=== PATIENT | male | born 1965 | race Caucasian/White ===

== ENCOUNTER 2017-04-11 08:55 | Emergency (ER) | payer SELFPAY ==
[~2017-04-11] VITALS: Ht 190.5 cm; Wt 95.0 kg
[~2017-04-11 08:55] MED LIST: FLEXERIL5 MG PO; MELOXICAM7.5 MG PO; PERCOCET 5/325M1 TAB PO
[2017-04-11] MEDS ORDERED: OXYCODONE HCL5 MG PO (09:10)
[2017-04-11 10:14] LABS: HEMATOCRIT 39.5 % (39.0-50.0); IMMATURE GRANULOCYTES 0.9 % (0.0-1.0); MEAN CELL VOLUME 94.7 fL CALC (80.0-100.0); MEAN CORPUSCULAR HGB 31.2 pG CALC (26.0-32.0); MEAN CORPUSCULAR HGB CONC 32.9 g/L CALC (32.0-36.0); NEUT# 6.39 thou/uL (1.82-7.42); RED BLOOD COUNT 4.17 mill/uL (4.70-6.10); RED CELL DISTRI WIDTH 13.9 % (11.5-15.5)
[2017-04-11 10:22] LABS: ALBUMIN 4.6 g/dL (3.2-5.0); ALKALINE PHOSPHATASE 64 u/l (38-126); ANION GAP 17 (6-22 (CALC)); BILIRUBIN, TOTAL 0.6 mg/dL (0.0-1.4); BUN 13 mg/dL (9-20); BUN/CREATININE RATIO 16 (12-20 (CALC)); CALCIUM 9.7 mg/dL (8.4-10.2); CARBON DIOXIDE 29 mmol/l (22-30); CHLORIDE 100 mmol/l (95-108); CREATININE 0.8 mg/dL (0.7-1.3); GFR > 60 ML/MIN (>=60 (CALC)); GFR FOR AFR.AMER. > 60 ML/MIN (>=60 (CALC)); GLUCOSE 120 mg/dL (75-110); POTASSIUM 4.8 mmol/l (3.5-5.1); SGOT/AST 30 u/l (17-59); SGPT/ALT 35 u/l (21-72); SODIUM 140 mmol/l (137-146)
[2017-04-11] MEDS ORDERED: BACTRIM DS1 TAB PO (11:15)
[2017-04-11] MEDS ORDERED: MEDDOSEPAK PO (11:15)
[2017-04-11 11:23] VITALS: BP 139/82
== END 2017-04-11 11:25 | disposition home or self-care (01) | DRG 607 ==
LOC: ED 08:55
PROVIDERS: Emergency Medicine
DX: R21 Rash and other nonspecific skin eruption (principal); R22.42 Localized swelling, mass and lump, left lower limb

== ENCOUNTER 2017-04-18 19:39 | Observation (INO) | payer SELFPAY ==
[~2017-04-18] VITALS: Ht 190.5 cm; Wt 94.0 kg
[~2017-04-18 19:39] MED LIST changes: +BACTRIM DS1 TAB PO; +MEDDOSEPAK PO; +OXYCODONE HCL5 MG PO
--- NOTE | 2017-04-18 20:04 | NUR ---
PT TO ROOM FOR TREATMENT IN STABLE CONDITION
--- NOTE | 2017-04-18 22:00 | NUR ---
IV ESTABLISHED, LABS DRAWN AND SENT. PATIENT MEDICATED ORDERED. WILL MONITOR FOR EFFECT.
[2017-04-18 22:19] LABS: HEMATOCRIT 38.1 % (39.0-50.0); HEMOGLOBIN 12.6 g/dl (14.0-18.0); IMMATURE GRANULOCYTES 1.3 % (0.0-1.0); MEAN CELL VOLUME 93.6 fL CALC (80.0-100.0); MEAN CORPUSCULAR HGB CONC 33.1 g/L CALC (32.0-36.0); NEUT# 10.46 thou/uL (1.82-7.42); RED BLOOD COUNT 4.07 mill/uL (4.70-6.10); RED CELL DISTRI WIDTH 13.2 % (11.5-15.5)
[2017-04-18 22:31] LABS: ALBUMIN 4.9 g/dL (3.2-5.0); ALKALINE PHOSPHATASE 80 u/l (38-126); ANION GAP 18 (6-22 (CALC)); BILIRUBIN, TOTAL 0.7 mg/dL (0.0-1.4); BUN 15 mg/dL (9-20); BUN/CREATININE RATIO 16 (12-20 (CALC)); CALCIUM 9.6 mg/dL (8.4-10.2); CARBON DIOXIDE 28 mmol/l (22-30); CHLORIDE 100 mmol/l (95-108); GFR > 60 ML/MIN (>=60 (CALC)); GFR FOR AFR.AMER. > 60 ML/MIN (>=60 (CALC)); GLUCOSE 97 mg/dL (75-110); POTASSIUM 4.3 mmol/l (3.5-5.1); SGOT/AST 24 u/l (17-59); SGPT/ALT 36 u/l (21-72); SODIUM 143 mmol/l (137-146); TOTAL PROTEIN 8.4 g/dL (6.3-8.2)
--- NOTE | 2017-04-18 22:35 | NUR ---
ABX COMPLETED. PATIENT STATES NO CHANGE IN PAIN AFTER MEDS. AWAITING MD AND PLAN OF CARE.
--- NOTE | 2017-04-18 23:39 | NUR ---
PATIENT RESTING ON STRETCHER. ALL DIAGNOSTICS COMPLETED. CONTINUE AWAITING MD FOR PLAN OF CARE.
--- NOTE | 2017-04-19 00:23 | NUR ---
CONTINUE AWAITING MD FOR PLAN OF CARE.
--- NOTE | 2017-04-19 00:33 | NUR ---
PATIENT GIVEN URINAL IN ATTEMPT TO COLLECT URINE SAMPLE.
[2017-04-19 00:58] LABS: URINE BILIRUBIN - DIPSTICK NEGATIVE (NEGATIVE); URINE BLOOD DIPSTICK NEGATIVE (NEGATIVE); URINE CLARITY CLEAR; URINE COLOR YELLOW; URINE GLUCOSE - DIPSTICK NEGATIVE (NEGATIVE); URINE KETONE NEGATIVE (NEGATIVE); URINE LEUK ESTERASE NEGATIVE (NEGATIVE); URINE NITRITE - DIPSTICK NEGATIVE (Negative); URINE PH 7.5 (4.5-8.0); URINE PROTEIN - DIPSTICK NEGATIVE (NEG-TRACE); URINE SPECIFIC GRAVITY 1.015
--- NOTE | 2017-04-19 01:19 | NUR ---
REPORT CALLED TO DARÍO. PATIENT ROOM IS NOT CLEAN. WILL NOTIFY WHEN READY.
--- NOTE | 2017-04-19 01:55 | NUR ---
PATIENT TO FLOOR VIA WHEELCHAIR.
[2017-04-19 02:00] VITALS: BP 131/84
--- NOTE | 2017-04-19 02:00 | NUR ---
PT. ARRIVED TO THE FLOOR VIA STRETCHER ACCOMPANIED BY ER NURSE. PT. ORIENTED TO CALL LIGHT, ROOM, AND POC; VERBALIZES UNDERSTANDING. ADMISSION ASSESSMENT COMPLETED. PT. HAS REDNESS/SWELLING NOTED TO LEFT FOOT EXTENDING UP 3/4TH OF A WAY UP [place]; OPEN AREA NOTED WITH SMALL AMOUNT OF PUSS AND SEROUS SANGINOUS DRAINAGE NOTED; SWABBED FOR WOUND CULTURE AND PLACED DRY DRESSING. PT. C/O LLE PAIN 03/15, WILL CALL MD FOR FURTHER ORDERS, NO PAIN MEDICATION PROFILED. PO FLUIDS OFFERED. PT. INSTRUCTED TO CALL FOR ANY NEEDS. CALL LIGHT IS IN REACH. WILL CONTINUE TO MONITOR.
--- NOTE | 2017-04-19 02:26 | NUR ---
SPOKED WITH DR. DUPONT AND NOTIFIED HIM OF PTS WOUND TO LLE AND OF PT'S C/O LLE PAIN. NEW ORDERS RECEIVED AND TO BE CARRIED OUT.
--- NOTE | 2017-04-19 05:35 | NUR ---
PT. RESTING IN BED WITH NO DISTRESS NOTED. AWAKENED FOR SCHEDULED ZOSYN, HUNG AT THIS TIME. PT. DENIES NEEDS, VOICES NO COMPLAINTS. CALL LIGHT IS IN REACH. WILL CONTINUE TO MONITOR.
[2017-04-19 07:50] VITALS: BP 114/71
--- NOTE | 2017-04-19 07:50 | NUR ---
PT. SITTING UP IN BED WATCHING TV, REPORTS PAIN 03/15 - MEDICATED ORDERS PROVIDE W/DILAUDID; DENIES ANY OTHER NEEDS AT THIS TIME, V/S ASSESSED AND CALL LIGHT W/IN REACH
[2017-04-19] MEDS ORDERED: KEFLEX500 M1 PO (09:04)
--- NOTE | 2017-04-19 12:50 | NUR ---
PT.OFF THE FLOOR DISCHARGED, AMBULATED SELF IN GOOD CONDITION
== END 2017-04-19 12:28 | disposition home or self-care (01) | DRG 603 ==
LOC: ED 19:39 → ED-I 04-19 00:20 → ED 04-19 00:51 → MS2 04-19 00:52
PROVIDERS: Emergency Medicine; ADMIT Internal Medicine; ATTEND Internal Medicine
DX: L02.416 Cutaneous abscess of left lower limb (principal); F17.220 Nicotine dependence, chewing tobacco, uncomplicated; L03.116 Cellulitis of left lower limb; M19.90 Unspecified osteoarthritis, unspecified site; L30.9 Dermatitis, unspecified; Z72.89 Other problems related to lifestyle; Z85.828 Personal history of other malignant neoplasm of skin
CPT/HCPCS: G0378

== ENCOUNTER 2019-10-15 19:40 | Inpatient (IN) | payer SELFPAY ==
[~2019-10-15] VITALS: Ht 190.5 cm; Wt 71.8 kg
[~2019-10-15 19:40] MED LIST changes: +KEFLEX500 M1 PO
--- NOTE | 2019-10-15 20:11 | NUR ---
PLACED IN WAITING ROOM PENDING AVAILABLE ROOM
--- NOTE | 2019-10-15 21:12 | NUR ---
RESTING QUIETLY IN WC IN WAITING ROOM. EXPLAINED DELAY.
--- NOTE | 2019-10-15 23:27 | NUR ---
PT. TO ROOM 12 WITH C/O BLE EDEMA AND OPEN SORES TOBLE. RLE HAS EXTENSIVE OPEN AREAS, WITH REDDENED PAINFUL AREAS. PT. STATES HE LIVES IN THE [facility] AND HE DOES NOT KNOW HOW THIS HAPPENED TO HIS LEGS.
--- NOTE | 2019-10-15 23:30 | NUR ---
TOES TO BLE ARE PINK WM AND MOVEABLE. FAINT PEDAL PLUSE TO BILATERAL FEET.
[2019-10-15 23:58] LABS: IMMATURE GRANULOCYTES 1.6 % (0.0-5.0); MEAN CORPUSCULAR HGB 28.4 pG CALC (26.0-32.0); MEAN CORPUSCULAR HGB CONC 31.2 g/L CALC (32.0-36.0); NEUT# 10.23 thou/uL (1.82-7.42); RED BLOOD COUNT 3.1 mill/uL (4.70-6.10); RED CELL DISTRI WIDTH 15.3 % (11.5-15.5)
--- NOTE | 2019-10-15 23:58 | NUR ---
IV ABT. STARTED PER MD ORDER.
[2019-10-16 00:03] LABS: HEMATOCRIT 28.2 % (39.0-50.0); HEMOGLOBIN 8.8 g/dl (14.0-18.0)
[2019-10-16 00:05] LABS: BARBITURATES NEGATIVE (NEGATIVE); COCAINE NEGATIVE (NEGATIVE); METHADONE NEGATIVE (NEGATIVE); OXCYCODONE NEGATIVE (NEGATIVE); TETRAHYDROCANNABIONOL NEGATIVE (NEGATIVE); TRICYLIC ANTIDEPRESSANTS NEGATIVE (NEGATIVE); URINE BILIRUBIN - DIPSTICK NEGATIVE (NEGATIVE); URINE BLOOD DIPSTICK NEGATIVE (NEGATIVE); URINE COLOR YELLOW; URINE GLUCOSE - DIPSTICK NEGATIVE (NEGATIVE); URINE KETONE NEGATIVE (NEGATIVE); URINE LEUK ESTERASE NEGATIVE (NEGATIVE); URINE NITRITE - DIPSTICK NEGATIVE (Negative); URINE PROTEIN - DIPSTICK TRACE mg/dL (NEG-TRACE); URINE SPECIFIC GRAVITY 1.015
[2019-10-16 00:16] LABS: ALBUMIN 3.7 g/dL (3.2-5.0); ALKALINE PHOSPHATASE 92 u/l (38-126); ANION GAP 15 (6-22 (CALC)); BILIRUBIN, TOTAL 0.4 mg/dL (0.0-1.4); BUN 15 mg/dL (9-20); BUN/CREATININE RATIO 15 (12-20 (CALC)); CARBON DIOXIDE 30 mmol/l (22-30); CHLORIDE 98 mmol/l (95-108); ETHYL ALCOHOL 0 mg/dl (0-30); GFR > 60 ML/MIN (>=60 (CALC)); GFR FOR AFR.AMER. > 60 ML/MIN (>=60 (CALC)); MAGNESIUM 2.2 mg/dL (1.6-2.3); POTASSIUM 4.3 mmol/l (3.5-5.1); SGOT/AST 33 u/l (17-59); SODIUM 139 mmol/l (137-146); TOTAL PROTEIN 8.2 g/dL (6.3-8.2)
--- NOTE | 2019-10-16 00:50 | NUR ---
PT. C/O BLE ITCHING, MD AWARE, BENADRYL IVP GIVEN PER MD ORDER.
--- NOTE | 2019-10-16 01:15 | NUR ---
Admission Note Report Given to: SAIDA SOLIS Transported by: Wheelchair X Stretcher Transported with: X Nurse Transporter X Patent IV O2 Banking Teacher Location: ICU X MS2
--- NOTE | 2019-10-16 01:26 | NUR ---
DRY STERIL DRESSINGS APPLIED TO BLE. PER MD ORDER.
--- NOTE | 2019-10-16 01:35 | NUR ---
PT. TAKEN TO MS FLOOR VIA STRETCHER, NO C/O AT THIS TIME.
[2019-10-16 01:40] VITALS: BP 153/88
--- NOTE | 2019-10-16 01:40 | NUR ---
PT ARRIVED TO FLOOR VIA STRETCHER ACCOMPAINED BY ER STAFF. PT ALERT AND ORIENTED. PT EXCESSIVELY PICKING AT SCABS AND SCRATCHING SELF. PT HAS HARD TIME KEEPING EYE CONTACT. NO APPARENT DISTRESS NOTED. PT C/O DISCOMFORT TO SKIN STATES "THE CRACKING OF MY SKIN HURTS". BLE EDEMA NOTED +[address] APPLIED IN ED, CDI. WOUND IMAGES OBTAINED AND DOCUMENTED. FOUL ODOR NOTED COMING FROM WOUNDS. LOTION APPLIED TO SKIN ABOVE DRESSINGS TO RELIEVE ITCHING AND CRACKING OF SKIN. IV SITE APPEARS HEALTHY, IV ABT INFUSING WITHOUT DIFFICULTY. PT ORIENTED TO ROOM AND CALL LIGHT SYSTEM. DISCUSSED POC. PT VERBALIZED UNDERSTANDING. WILL CONTINUE TO MONITOR.
--- NOTE | 2019-10-16 02:45 | NUR ---
PT MEDICATED FOR PAIN WITH PRN MOTRIN AND BLE ELEVATED ON PILLOW. MEAL PROVIDED WELL UPON REQUEST. PT REMAINS RESTLESS AND PICKING SCABS ON ARMS AND NECK. EDUCATION REINFORCED AT THIS TIME. CALL LIGHT WITHIN REACH WILL CONTINUE TO MONITOR.
[2019-10-16 04:00] VITALS: BP 139/68
[2019-10-16 09:18] VITALS: BP 126/69
--- NOTE | 2019-10-16 09:20 | NUR ---
PT RESTING IN SEMI FOWLERS POSITION,A&O X3;VS OBTAINED AND ASSESSMENT COMPLETED;PT DENIES ANY CURRENT PAIN OR DISCOMFORTS,PAIN SCALE AND REPORTING EDUCATED;RESPIRATIONS EVEN AND UNLABORED ON RA,CLEAR LUNG SOUNDS;ABDOMEN SOFT ON PALPATION AND ACTIVE IN ALL 4 QUADRANTS;WEAK PEDAL PULSES;DRESSINGS TO BLE CDI AND LEGS ELEVATED ON A PILLOW;#20G TO LAC FLUSHED AND PATENT,SITE APPEARS HEALTHY;PT DENIES ANY CURRENT PAIN OR NEEDS;ENCOURAGED TO CALL FOR ASSISTANCE IF NEEDED;CALL LIGHT IN REACH;WILL CONTINUE TO MONITOR
--- NOTE | 2019-10-16 12:07 | NUR ---
NOTIFIED 'S OFFICE OF CONSULT,SPOKE WITH AYLEEN.
--- NOTE | 2019-10-16 12:35 | NUR ---
PT RESTING IN SEMI FOWLERS POSITION WITH VISITORS AT BEDSIDE;RESPIRATIONS REMAIN EVEN AND UNLABORED ON RA;PT REPORTS BLE PAIN RATING 8/10 ON THE PAIN SCALE AND REQUESTS PAIN MEDICATION,PT TO BE MEDICATED WITH PRN DILAUDID 1MG IVP;BLE DRESSED WITH KERLEX AND TELFA DRESSINGS WITH ENCOURAGED ELEVATION;IV SITE PATENT AND NS STARTED @ 100ML/HR;PT DENIES ANY ADDITIONAL NEEDS AND IS ENCOURAGED TO CALL FOR ASSISTANCE IF NEEDED;FALL PRECAUTIONS IN PLACE WITH CALL LIGHT IN REACH;WILL CONTINUE TO MONITOR
--- NOTE | 2019-10-16 13:25 | NUR ---
NOTIFIED OR ABOUT POSSIBLE I&D TOMORROW OF BLE,SPOKE WITH IRVING IN OR
[2019-10-16 14:20] VITALS: BP 131/70
--- NOTE | 2019-10-16 15:18 | NUR ---
PT RETURNED TO MED/SURG ROOM 270 IN STABLE CONDITION
--- NOTE | 2019-10-16 16:15 | NUR ---
RT AT BEDSIDE OBTAINING EKG
--- NOTE | 2019-10-16 16:15 | NUR ---
PT RESTING IN SEMI FOWLERS POSITION;RESPIRATIONS EVEN AND UNLABORED ON RA;PT DENIES ANY CURRENT PAIN OR DISCOMFORTS;IV SITE PATENT;BLE DRESSINGS CDI;IV FLUIDS INFUSING WITH EASE PER ORDER;PT DENIES ANY ADDITIONAL NEEDS AT THIS TIME AND IS ENCOURAGED TO CALL FOR ASSISTANCE IF NEEDED;CALL LIGHT IN REACH;WILL CONTINUE TO MONITOR
--- NOTE | 2019-10-16 16:19 | NUR ---
XRAY AT BEDSIDE OBTAINING CHEST XRAY
--- NOTE | 2019-10-16 16:58 | NUR ---
S: MARCELO BARFIELD is a 53 M who presents with cellulitis and abscess of left lower extremity and cellulitis and abscess of right leg. He has a history of osteoarthritis, recurrent cellulitus and herniated disc L4-L5. All medications in patient's chart were reviewed. O: VS: BP:131/70 mmHg, P: 95bpm, RR: 20 breaths/min,T: 99.6 W: 73kg, HT: 75inch, Scr=1.0 mg/dL,CrCl= 89.22 ml/min A: Blood culture is pending. P: Patient is on Zosyn 3.375 GM IV Q6H. Vancomycin ordered for pharmacy to dose. Dose of Vancomycin 1,000mg was given at the ED 10/15/19 @2330 and 10/16/19 @1330 Start Vancomycin 1,000mg IV Q12H. Vancomycin trough to be drawn before the 4th dose on 10-17-19 @ 1230. Vancomycin goal trough is between 10-15 mcg/ml. Pharmacy will follow and or advise on antibiotics use as needed.
--- NOTE | 2019-10-16 17:52 | NUR ---
PT MEDICATED WITH PRN DILAUDID 1MG IVP FOR BLE PAIN;INFORMED CONSENT OBTAINED AT THIS TIME FOR DEBRIDEMENT OF BILATERAL LOWER EXTREMITIES.ALL RISKS AND BENEFITS DISCUSSED WITH PT WHO VERBALIZED UNDERSTANDING.
--- NOTE | 2019-10-16 19:05 | NUR ---
REPORT FROM ADDY SOLIS. PT NOTED RESTING IN BED WATCHING TV. NO APPARENT DISTRESS NOTED. DRESSING BLE CDI. PT DENIES ANY PAIN OR DISCOMFORT. DISCUSSED POC. PT VERBALIZED UNDERSTANDING. CALL LIGHT WITHIN REACH. WILL CONTINUE TO MONITOR.
[2019-10-16 19:15] VITALS: BP 122/67
--- NOTE | 2019-10-16 21:50 | NUR ---
PT MEDICATED FOR BLE PAIN 7-10. BLE REPOSITIONED AND ELEVATED ON PILLOWS FOR COMFORT. IV FLUIDS INFUSING WITHOUT DIFFICULTY. CALL LIGHT WITHIN REACH. WILL CONTINUE TO MONITOR.
[2019-10-17] VITALS (10 sets, daily range): BP systolic 124–144; BP diastolic 70–89
--- NOTE | 2019-10-17 01:19 | NUR ---
PT RESTING IN BED WITH EYES CLOSED. NO APPARENT DISTRESS NOTED. CALL LIGHT WITHIN REACH. WILL CONTINUE TO MONITOR.
[2019-10-17 05:21] LABS: HEMATOCRIT 27.4 % (39.0-50.0); HEMOGLOBIN 8.5 g/dl (14.0-18.0); MEAN CORPUSCULAR HGB 28.2 pG CALC (26.0-32.0); RED BLOOD COUNT 3.01 mill/uL (4.70-6.10); RED CELL DISTRI WIDTH 15.4 % (11.5-15.5)
--- NOTE | 2019-10-17 05:35 | NUR ---
PT RESTING IN BED WITH EYES CLOSED. NO APPARENT DISTRESS NOTED. CALL LIGHT WITHIN REACH. WILL CONTINUE TO MONITOR.
[2019-10-17 05:42] LABS: ANION GAP 11 (6-22 (CALC)); BUN 10 mg/dL (9-20); BUN/CREATININE RATIO 12 (12-20 (CALC)); CARBON DIOXIDE 29 mmol/l (22-30); CHLORIDE 100 mmol/l (95-108); CREATININE 0.8 mg/dL (0.7-1.3); GFR > 60 ML/MIN (>=60 (CALC)); GFR FOR AFR.AMER. > 60 ML/MIN (>=60 (CALC)); MAGNESIUM 2.1 mg/dL (1.6-2.3); POTASSIUM 4.4 mmol/l (3.5-5.1); SODIUM 136 mmol/l (137-146)
--- NOTE | 2019-10-17 07:30 | NUR ---
REPORT RECEIVED FROM IRMA COLLADO. PT SITTING UPRIGHT IN BED. SLEEPING. CALL LIGHT WITHIN REACH.
--- NOTE | 2019-10-17 12:05 | NUR ---
PT. LEFT FLOOR VIA STRETCHER ACCOMPANIED BY JEFF LEE DESTINATION OR.
--- NOTE | 2019-10-17 14:45 | NUR ---
PT ARRIVED TO FLOOR VIA STRETCHER ACCOMPANIED BY JEFF WOODS. PT TRANSFERED TO BED. DENIES PAIN AT THIS TIME. DRSG CDI TO BILATERAL LOWER LEGS. BOTH LEGS ELEVATED ON PILLOWS X 2. POST-OP VS PER PROTOCOL SET. PT. ALERT AND ORIENTED. FAMILY AT BEDSIDE NOW.
--- NOTE | 2019-10-17 16:27 | NUR ---
FAMILY AT BEDSIDE. PT DENIES NAUSEA OR PAIN. CALL LIGHT WITHIN REACH.
--- NOTE | 2019-10-17 16:34 | NUR ---
S: MARCELO BARFIELD is a 53 M who presents with cellulitis. He has a history of tobacco abuse, methamphetamine abuse, and cellulitis/abscess of right leg. All medications in patient's chart were reviewed. O: VS: BP 141/77 mmHg, P 75 bpm, RR 15 breaths/min, T 99 F W 71.838 kg, HT 75 in, Scr 0.8 mg/dl A: Blood culture is pending/show. P: Patient is on Zosyn 3.375g IV q6h. Vancomycin ordered for pharmacy to dose. Change dose to Vancomycin 1250mg IV Q12H. Vancomycin trough is drawn before the 4th dose on 10/19/2019 @ 1230. Vancomycin goal trough is between 10-15 mcg/ml. Pharmacy will follow and or advise on antibiotics use as needed.
--- NOTE | 2019-10-17 19:02 | NUR ---
REPORT FROM SATINDER AGUILAR. PT NOTED SITTING UP IN BED WITH VISITOR AT BEDSIDE. PT EATING FOOD BROUGHT FROM OUTSIDE OF FACILITY. PT DENIES ANY PAIN OR DISCOMFORT. NO CURRENT WANTS OR NEEDS. DISCUSSED POC. PT VERBALIZED UNDERSTANDING. CALL LIGHT WITHIN REACH. WILL CONTINUE TO MONITOR.
--- NOTE | 2019-10-17 21:44 | NUR ---
PT MEDICATED FOR BLE PAIN 8-10. LEGS ELEVATED ON PILLOWS AT THIS TIME. DRESSING CDI. PT DENIES ANY OTHER WANTS OR NEEDS. CALL LIGHT WITHIN REACH. WILL CONTINUE TO MONITOR.
[2019-10-18 00:05] VITALS: BP 151/76
--- NOTE | 2019-10-18 00:48 | NUR ---
PT MEDICATED FOR BLE PAIN 8-10 WITH PRN DILAUDID. LEGS REPOSITIONED AND ELEVATED ON PILLOWS. PT DENIES ANY OTHER WANTS OR NEEDS. CALL LIGHT WITHIN REACH. WILL CONTINUE TO MONITOR.
[2019-10-18 04:20] VITALS: BP 157/76
--- NOTE | 2019-10-18 04:37 | NUR ---
PT MEDICATED FOR BLE PAIN 8-10. PT DENIES ANY OTHER WANTS OR NEEDS. NO APPARENT DISTRESS NOTED. CALL LIGHT WITHIN REACH. WILL CONTINUE TO MONITOR.
[2019-10-18 05:13] LABS: HEMATOCRIT 27.1 % (39.0-50.0); HEMOGLOBIN 8.3 g/dl (14.0-18.0); MEAN CELL VOLUME 92.2 fL CALC (80.0-100.0); MEAN CORPUSCULAR HGB 28.2 pG CALC (26.0-32.0); MEAN CORPUSCULAR HGB CONC 30.6 g/L CALC (32.0-36.0); RED BLOOD COUNT 2.94 mill/uL (4.70-6.10); RED CELL DISTRI WIDTH 15.1 % (11.5-15.5)
[2019-10-18 05:42] LABS: ANION GAP 10 (6-22 (CALC)); BUN 15 mg/dL (9-20); BUN/CREATININE RATIO 16 (12-20 (CALC)); CARBON DIOXIDE 31 mmol/l (22-30); CHLORIDE 100 mmol/l (95-108); CREATININE 0.9 mg/dL (0.7-1.3); GFR > 60 ML/MIN (>=60 (CALC)); GFR FOR AFR.AMER. > 60 ML/MIN (>=60 (CALC)); POTASSIUM 4.4 mmol/l (3.5-5.1); SODIUM 136 mmol/l (137-146)
[2019-10-18 07:17] VITALS: BP 142/88
--- NOTE | 2019-10-18 08:02 | NUR ---
0802-Pt lying in bed with eyes closed. No s/s of distress. Bed low and locked. Call light and phone within reach. Pt stable, will continue to monitor.
[2019-10-18 10:55] VITALS: BP 155/92
--- NOTE | 2019-10-18 14:45 | NUR ---
1445-Pt sitting up in bed. Pt looks alert and great. Pt states legs throb but we are controling his pain well. I have medicated him and will do his ordered wet to dry dressing change at 1530. Bed low and locked. Call light and phone within reach. Pt stable. Will continue to monitor.
--- NOTE | 2019-10-18 15:30 | NUR ---
1530-Pt provided pain medication, dressing change performed per note to nurse section. Wet to dry dressing change. Pt tolerated well. Pictures obtained. New dressing noted. Notes state that dressing change needs to be completed TID on RLE and BID on LLE. Bed low and locked. Call light and phone within reach. Pt stable. Will continue to monitor.
[2019-10-18 17:10] VITALS: BP 146/81
[2019-10-18 18:20] VITALS: BP 119/65
[2019-10-19 00:03] VITALS: BP 126/64
--- NOTE | 2019-10-19 00:15 | NUR ---
PATIENT RESTING IN BED-MEDICATED WITH TORADO ORDERED AND WITH ZOSYN IVPB ORDERED. PATIENT STATES THAT HIS PAIN IS 9/10 SHORTLY AFTER RECIEVING TORADOL AND MEDICATED WITH DILAUDID 1MG IVP FOR PAIN. EAGLE LE DRESSINGS INTACT AND BLE ELEVATED ON PILLOW. SAFETY PRECAUTIONS REINFORCED. CALL LIGHT IN REACH. WILL CONT TO MONITOR.
[2019-10-19 04:08] VITALS: BP 126/73
--- NOTE | 2019-10-19 04:45 | NUR ---
PATEINT RESTING IN BED WITH BOTH LE ELEVATED ON PILLOWS. PATIENT PRE-MEDICATED FOR WOUND CARE WITH DILAUDID 1MG IVP ORDERED. BOTH LOWER EXTREMITY DRESSINGS WERE CHANGED. VERY PAINFUL. OLD DRESSING REMOVED USE SALINE FOR IRRIGATION TO REMOVE OLD DRESSINGS. ADAPTIC APPLIED AND MOIST TO DRY SALINE DRESSINGS APPLIED, COVERED WITH ADB'S AND SECURED WITH GAUZE WRAP. PATIENT MEDICATED AFTER DRESSING CHANGE WITH LORTAB ORDERED. BOTH LE REMAIN ELEVATED ON PILLOWS. FEET ARE COOL TO TOUCH WITH FAINT PEDAL PULSES. PATIENT VOIDED 900CC OF CLEAR YELLOW URINE IN URINAL. SAFETY PRECAUTIONS REINFORCED. CALL LIGHT IN REACH. WILL CONT TO MONITOR.
[2019-10-19 07:24] VITALS: BP 131/74
--- NOTE | 2019-10-19 07:24 | NUR ---
PT SLEEPING IN BED. AWAKENED TO COMPLETE ASSESSMENT. A&O X3. NO DISTRESS NOTED. DRESSINGS TO BLE CDI, NO SHADOWING PRESENT. LEGS ELEVATED. NO OTHER NEEDS AT THIS TIME. ASSESSMENT COMPLETED. DISCUSSED POC. CALL LIGHT IN REACH. CONTINUE TO MONITOR.
--- NOTE | 2019-10-19 09:21 | NUR ---
PT C/O PAIN 04/15. DILAUDID GIVEN. WILL REASSESS.
--- NOTE | 2019-10-19 09:46 | NUR ---
PT SLEEPING IN BED, NO SIGNS OF PAIN AT THIS TIME. CONTINUE TO MONITOR.
--- NOTE | 2019-10-19 14:17 | NUR ---
PER PT AND MOTHER "LORTAB DOES NOT DO ANYTHING FOR ME, DILAUDID IS BETTER". PT REFUSED LORTAB. DILAUDID GIVEN.
--- NOTE | 2019-10-19 14:26 | NUR ---
VANCOMYCIN ORDERED FOR PHARMACY TO DOSE. PT RECEIVING VANCOMYCIN 1250MG IV Q12H. VANCO TROUGH = 11 ...CONTINUE AT THIS DOSE.
[2019-10-19 15:20] VITALS: BP 128/68
--- NOTE | 2019-10-19 15:30 | NUR ---
PT COMPLAINED TO CELESTINA LOOMIS THAT I DID NOT "GIVE HIM HIS LORTAB". EXPLAINED TO PT THAT I DID OFFER IT AND HE REFUSED IT THE FIRST TIME. PER PT HE WAS CONFUSED IN REGARDS TO THE MEDICATION AND THOUGHT THAT IT WAS GOING TO BE THE ONLY THING THAT I WAS GIVING HIM. EXPLAINED TO THE PT THAT THAT WAS NOT THE CASE. PT STATED "OH OKAY, WELL I WAS JUST CONFUSED BUT I GET IT NOW". LORTAB GIVEN AT THIS TIME.
[2019-10-19 18:37] VITALS: BP 141/76
--- NOTE | 2019-10-19 20:00 | NUR ---
PATIENT RESTING IN BED AT THIS TIME WITH HOB ELEVATED AND EYES CLOSED. APPEARS SLEEPING AT THIS TIME. DRESSING TO BOTH LE INTACT AND ELEVATED ON PILLOWS. IV SITE TO RIGHT FOREARM INTACT WITH IVF PATENT AND INFUSING AT KVO RATE. CALL LIGHT IN REACH. WILL CONT TO MONITOR.
--- NOTE | 2019-10-20 00:55 | NUR ---
APPEARS SLEEPING AT THIS TIME WITH EYES CLOSED. MEDICATED EARLIER FOR 9/10 ON PAIN SCALE TO BOTH LEGS. IVF PATENT AND INFUSING AT KVO RATE VIA RIGHT FOREARM SITE. BLE ELEVATED ON PILLOWS WITH DRESSING INTACT. CALL LIGHT IN REACH. WILL CONT TO MONITOR.
--- NOTE | 2019-10-20 02:18 | NUR ---
PATIENT RESTING IN BED-C/O SEVERE BLE PAIN-04/15 ON PAIN SALE. MEDICATED WITH DILAUDID 1MG IVP FOR PAIN. VANCO INFUSING ORDERED VIA RIGHT FA SITE. CALL LIGHT IN REACH. WILL CONT TO MONITOR.
[2019-10-20 03:23] VITALS: BP 126/70
--- NOTE | 2019-10-20 04:58 | NUR ---
PATIENT RESSTING IN [id number] WITH DILAUDID 1MG PRIOR TO WOUND CARE TO BLE. MULTIPLE WOUNDS CLEANSED WITH NS AND THEN MOIST TO DRY DRESSING APPLIED. SECURED WITH PAPER TAPE. PATIENT TO BE SEEN BY WOUND CARE TODAY. BOTH LEGS ELEVATED ON PILLOWS. DISCUSSED PROPER NUTRITION WITH PATIENT AND INCREASING HEALING ABILITY. IVF SITE TO RIGHT FOREARM INTACT WITH IVF NS AT KVO RATE. SAFETY PRECAUTIONS REINFORCED. CALL LIGHT IN REACH. WILL CONT TO MONITOR.
[2019-10-20 06:44] LABS: HEMATOCRIT 28.3 % (39.0-50.0); HEMOGLOBIN 8.5 g/dl (14.0-18.0); MEAN CORPUSCULAR HGB 28.2 pG CALC (26.0-32.0); RED BLOOD COUNT 3.01 mill/uL (4.70-6.10); RED CELL DISTRI WIDTH 15.5 % (11.5-15.5)
--- NOTE | 2019-10-20 07:10 | NUR ---
REPORT RECEIVED FROM JEFF CARRASQUILLO. PT SITTING UP IN BED BRUSHING TEETH; ALERT AND ORIENTED. C/O 9/10 RLE PAIN. DRESSINGS CDI TO BLE. RESPIRATIONS EVEN AND UNLABORED ON ROOM AIR. PLAN OF CARE REVIEWED. PT ENCOURAGED TO VERBALIZE CONCERNS. STATES UNDERSTANDING. SAFETY MEASURES IN PLACE. CALL LIGHT WITHIN REACH.
[2019-10-20 07:11] LABS: ANION GAP 8 (6-22 (CALC)); BUN 20 mg/dL (9-20); BUN/CREATININE RATIO 25 (12-20 (CALC)); CARBON DIOXIDE 31 mmol/l (22-30); CHLORIDE 103 mmol/l (95-108); CREATININE 0.8 mg/dL (0.7-1.3); GFR > 60 ML/MIN (>=60 (CALC)); GFR FOR AFR.AMER. > 60 ML/MIN (>=60 (CALC)); POTASSIUM 4.3 mmol/l (3.5-5.1); SODIUM 138 mmol/l (137-146)
[2019-10-20 08:00] VITALS: BP 126/79
--- NOTE | 2019-10-20 11:10 | NUR ---
DR. PICKENS AT BEDSIDE TO EVALUATE LEG WOUNDS. DILAUDID GIVEN AT THIS TIME FOR 9/10 PAIN. PARENTS AT BEDSIDE.
--- NOTE | 2019-10-20 13:43 | NUR ---
DR. FLORES AT BEDSIDE TO EVALUATE LEG WOUNDS. MEDICATED WITH DILAUDID FOR 10/10 PAIN. PT WITH MOANING AND FACIAL GRIMACING.
--- NOTE | 2019-10-20 14:15 | NUR ---
RIGHT LEG DRESSED WITH XEROFORM AND KERLEX BY DR. BLANCA. CHANGE EVERY OTHER DAY.
[2019-10-20 15:18] VITALS: BP 132/68
--- NOTE | 2019-10-20 18:24 | NUR ---
DR. COX AT VIRTUAL BEDSIDE FOR ID CONSULT. LORTAB GIVEN NOW.
[2019-10-20 18:51] VITALS: BP 134/81
--- NOTE | 2019-10-20 20:00 | NUR ---
PATIENT REST IN BED WITH EYES CLOSED. APPEARS SLEEPING AT THIS TIME-RESPS ARE EVEN AND UNLABORED. BLE DRESSING ARE CLEAN DRY AND INTACT AT THIS TIME. BLE ELEVATED ON PILLOWS. IVF PATENT ANDINFUSING VIA RIGHT AC SITE AT KVO RATE. CALL LIGHT IN REACH. WILL CONT TO MONITOR.
--- NOTE | 2019-10-20 22:30 | NUR ---
PATIENT RESTING IN BED-C/O SEVERE BLE PAIN. MEDICATED WITH LORTAB 10/325MG PO ORDERED. PATIENT ASKING ABOUT "SHOT". PATIENT INSTRUCTED TTHAT THE DILAUDID HAS BEEN DISCONTUED AND NOW ON LORTABS ONLY. VERBALIZES UNDERSTANDING. CALL LIGHT IN REACH. WILL CONT TO MONITOR.
--- NOTE | 2019-10-21 03:00 | NUR ---
PATIENT C/O BLE PAIN-10/10 ON PAIN SCALE. MEDICATED WITH LORTAB ORDERED. CALL LIGHT IN REACH. WILL CONT TO MONITOR.
[2019-10-21 03:30] VITALS: BP 123/75
--- NOTE | 2019-10-21 05:01 | NUR ---
PATIENT APPEARS SLEEPING AT THIS TIME WITH EYES CLOSED. RESPS ARE EVEN AND UNLABORED. CALL LIGHT IN REACH. WILL CONT TOO MONITOR.
[2019-10-21 05:24] LABS: HEMATOCRIT 30.2 % (39.0-50.0); HEMOGLOBIN 9.2 g/dl (14.0-18.0); MEAN CELL VOLUME 92.4 fL CALC (80.0-100.0); MEAN CORPUSCULAR HGB 28.1 pG CALC (26.0-32.0); MEAN CORPUSCULAR HGB CONC 30.5 g/L CALC (32.0-36.0); RED BLOOD COUNT 3.27 mill/uL (4.70-6.10); RED CELL DISTRI WIDTH 15.3 % (11.5-15.5)
[2019-10-21 05:49] LABS: ANION GAP 11 (6-22 (CALC)); BUN 18 mg/dL (9-20); BUN/CREATININE RATIO 22 (12-20 (CALC)); CARBON DIOXIDE 29 mmol/l (22-30); CHLORIDE 101 mmol/l (95-108); CREATININE 0.8 mg/dL (0.7-1.3); GFR > 60 ML/MIN (>=60 (CALC)); GFR FOR AFR.AMER. > 60 ML/MIN (>=60 (CALC)); MAGNESIUM 2.2 mg/dL (1.6-2.3); POTASSIUM 4.8 mmol/l (3.5-5.1); SODIUM 137 mmol/l (137-146)
--- NOTE | 2019-10-21 07:00 | NUR ---
SHIFT CHANGE REPORT, PT AWAKE ALERT AND ORIENTED RESTING IN BED, C/O SEVERE PAIN TO LOWER EXT, CONCERN ADDRESSED, RIGHT LEG WITH SATRUATED DRESSING IN PLACE, CALL GOTTI IN REACH.
[2019-10-21 07:47] VITALS: BP 138/73
--- NOTE | 2019-10-21 12:08 | NUR ---
DR FLORES HERE, CHANGED DRESSING TO RIGHT LEG, PT GIVEN ORDERED ANALGESIC FOR PROCEDUDRE.
[2019-10-21 15:22] VITALS: BP 140/82
--- NOTE | 2019-10-21 16:00 | NUR ---
RESTING IN BED, PAIN CONCERNS ADDRESSED, WILL CONTINUE TO MONITOR.
[2019-10-21 19:41] VITALS: BP 115/65
--- NOTE | 2019-10-21 22:07 | NUR ---
PATIENT RESTING IN BED AT THIS TIME WITH HOB ELEVATED AND EYES CLOSED BUT RESPONDS WHEN SPOKEN TO. ALERT AND ORIENTED C/O 9/10 ON PAIN SCALE TO BLE. MEDICATED WITH ORTAB 10/325MG PO ORDERED. BLE WITH DRESSINGS INTACT-WERE CHANGED BY DR. OWEN TODAY. ELEVATED BLE ON PILLOWS. IVF PATENT AND INFSUING VIA RAC SITE AT KVO RATE. SAFETY PRECAUTIONS REINFORCED. CALL LIGHT IN REACH. WILL CONT TO MONITOR.
--- NOTE | 2019-10-22 00:10 | NUR ---
PATIENT RESTING IN BED AT THIS TIME-AWAKE ALERT AND C/O PAIN TO BLE AT 9/10 ON PAIN SCALE. PATIENT MEDICATED WITH LORTAB 10/325MG PO ORDERED AND ZOSYN INFUSING VIA RIGHT AC SITE ORDERED. PATIENT HUNGRY AND PROVIDED WITH TURKEY DINNER. VOIDING QS [id number] YELLOW URINE. DRESSING TO BLE ARE CDI AT THIS TIME AND ELEVATED ON PILLOWS. SAFETY PRECAUTIONS REINFORCED. CALL LIGHT IN REACH. WILL CONT TO MONITOR.
--- NOTE | 2019-10-22 02:17 | NUR ---
APPEARS SLEEPINT WITH HOB ELEVATED AND EYES COSED. RESP ARE EVEN AND UNLABORED. BLE DRESSINGS CDI ANDELEVATED ON PILLOWS. CALL LIGHT IN REACH. WILL CONT TO MONITOR.
[2019-10-22 04:00] VITALS: BP 124/74
--- NOTE | 2019-10-22 04:12 | NUR ---
PATIENT RESTING IN BED AT THIS TIME-C/O SEVERE BLE PAIN-03/15. MEDICATED WITH LORTAB 10/325MG PO FOR PAIN. VOIDED 400CC OF YELLOW URINE IN URINAL. BLE DRESSINGS INTACT AND ELEVATED ON PILLOWS. CALL LIGHT IN REACH. WILL CONT TO MONITOR.
--- NOTE | 2019-10-22 07:43 | NUR ---
SHIFT CHANGE REPORT, PT SLEEPING AT THIS TIME, NO VISIBLE OF DISCOMFORT, LEGS ELEVATED ON PILLOWS, DRESSINGS TO LOWER EXT CDI, CALL GOTTI IN REACH AND BED IN LOWEST POSITION.
[2019-10-22 08:09] VITALS: BP 118/62
[2019-10-22] MEDS ORDERED: LORTAB 1010 MG PO (11:41)
[2019-10-22] MEDS ORDERED: OMNICEF300 MG PO (11:41)
--- NOTE | 2019-10-22 12:30 | NUR ---
HAVING MEAL AT THIS TIME, PAIN CONCERN ADDRESSED, NO NEW COMPLAIN.
== END 2019-10-22 13:49 | disposition home or self-care (01) | DRG 580 ==
LOC: ED 19:40 → ED-I 10-16 00:16 → ED 10-16 00:31 → MS2 10-16 00:32 → ED-I 10-16 00:32 → MS2 10-16 01:02
PROVIDERS: Family Medicine; Nurse Practitioner Family; ADMIT Internal Medicine; ATTEND Internal Medicine
PROC: 0KBS0ZZ Excision of Right Lower Leg Muscle, Open Approach (ICD-10-PCS; principal; 2019-10-17)
PROC: 0JDP3ZZ Extraction of Left Lower Leg Subcutaneous Tissue and Fascia, Percutaneous Approach (ICD-10-PCS; 2019-10-17)
DX: L03.115 Cellulitis of right lower limb (principal); L97.929 Non-pressure chronic ulcer of unspecified part of left lower leg with unspecified severity; L97.919 Non-pressure chronic ulcer of unspecified part of right lower leg with unspecified severity; L03.116 Cellulitis of left lower limb; L02.416 Cutaneous abscess of left lower limb; L02.415 Cutaneous abscess of right lower limb; F15.10 Other stimulant abuse, uncomplicated; L98.9 Disorder of the skin and subcutaneous tissue, unspecified; B96.89 Other specified bacterial agents as the cause of diseases classified elsewhere; D64.9 Anemia, unspecified; F17.200 Nicotine dependence, unspecified, uncomplicated; Z59.0 Homelessness
CPT/HCPCS: J0131; J1100; J1650; J3370; Q3014

== ENCOUNTER 2020-01-11 05:45 | Inpatient (IN) | payer SELFPAY ==
[~2020-01-11] VITALS: Ht 190.5 cm; Wt 78.0 kg
[~2020-01-11 05:45] MED LIST changes: +LORTAB 1010 MG PO; +OMNICEF300 MG PO
--- NOTE | 2020-01-11 06:00 | NUR ---
PATIENT TO ROOM 9 VIA WHEELCHAIR. TRIAGE COMPLETED AT BEDSIDE. AXEL VALERO.
--- NOTE | 2020-01-11 06:48 | NUR ---
REPORT GIVEN TO JFEF CALDERON.
[2020-01-11 06:55] LABS: HEMOGLOBIN 11.1 g/dl (14.0-18.0); IMMATURE GRANULOCYTES 0.5 % (0.0-5.0); MEAN CELL VOLUME 93.1 fL CALC (80.0-100.0); MEAN CORPUSCULAR HGB 29.5 pG CALC (26.0-32.0); MEAN CORPUSCULAR HGB CONC 31.7 g/dL CAL (32.0-36.0); NEUT# 8.78 thou/uL (1.82-7.42); RED BLOOD COUNT 3.76 mill/uL (4.70-6.10); RED CELL DISTRI WIDTH 15.8 % (11.5-15.5)
[2020-01-11 07:11] LABS: ALBUMIN 3.9 g/dL (3.2-5.0); ALKALINE PHOSPHATASE 74 u/l (38-126); ANION GAP 12 (6-22 (CALC)); BILIRUBIN, TOTAL 0.5 mg/dL (0.0-1.4); BUN 14 mg/dL (9-20); BUN/CREATININE RATIO 16 (12-20 (CALC)); CARBON DIOXIDE 27 mmol/l (22-30); CHLORIDE 104 mmol/l (95-108); CREATININE 0.8 mg/dL (0.7-1.3); GFR > 60 ML/MIN (>=60 (CALC)); GFR FOR AFR.AMER. > 60 ML/MIN (>=60 (CALC)); POTASSIUM 3.7 mmol/l (3.5-5.1); SGOT/AST 25 u/l (17-59); SODIUM 139 mmol/l (137-146); TOTAL PROTEIN 7.7 g/dL (6.3-8.2)
--- NOTE | 2020-01-11 07:47 | NUR ---
PT HAS BILATERAL REDNESS/SWELLING TO LOWER LEGS/FEET FROM KNEES DOWN WITH ULCERS TO AREAS ON BOTH LEGS, PT STATES HE IS NOT LIVING IN THE [place]ILDR[place] AT THIS TIME, STAYING IN A HOUSE. STATES NOTICED INCREASED SWELLING/REDNESS SINCE THE January.
--- NOTE | 2020-01-11 08:26 | NUR ---
TRYING TO GET PT TO GIVE A URINE SPECIMEN BUT KEEPS FALLING ASLEEP. I ASKED HIM WHY HE QUIT COMING FOR HIS OUTPT MEDS AFTER DISCHARGE IN OCTOBER AND HE STATES THEY TOLD HIM THAT HE WAS FINISHED.
--- NOTE | 2020-01-11 08:33 | NUR ---
TRIED CALLING REPORT, NURSE UNAVAILABLE AT THIS TIME
[2020-01-11 08:55] LABS: URINE BILIRUBIN - DIPSTICK NEGATIVE (NEGATIVE); URINE BLOOD DIPSTICK NEGATIVE (NEGATIVE); URINE COLOR YELLOW; URINE GLUCOSE - DIPSTICK NEGATIVE (NEGATIVE); URINE KETONE TRACE mg/dL (NEGATIVE); URINE LEUK ESTERASE NEGATIVE (NEGATIVE); URINE NITRITE - DIPSTICK NEGATIVE (Negative); URINE PH 5.5 (4.5-8.0); URINE PROTEIN - DIPSTICK NEGATIVE (NEG-TRACE); URINE SPECIFIC GRAVITY >=1.030; URINE UROBILINOGEN - DIPSTICK 0.2 E.U./dL (0.2)
--- NOTE | 2020-01-11 09:20 | NUR ---
TRIED CALLING REPORT AGAIN, NURSE NOT AVAILABLE. PT REMAINS RESTING QUIETLY ON STRETCHER, VANCOMYACIN STILL INFUSING
--- NOTE | 2020-01-11 10:15 | NUR ---
PT TAKEN TO FLOOR PER W/C.
[2020-01-11 10:30] VITALS: BP 119/65
--- NOTE | 2020-01-11 13:41 | NUR ---
PT PRESENTS WITH CELLULITIS; VANCOMYCIN ORDERED FOR PHARMACY TO DOSE. SCR = 0.8 MG/DL CRCL = 117 ML/MIN INITIATE VANCOMYCIN 1250MG IV Q12H STARTING 01/10 @ 1800. DRAW VANCO TROUGH 30 MIN B4 4TH DOSE ON 01/12 @ 0530. GOAL TROUGH IS 10-15 MCG/ML PHARMACY WILL CONTINUE TO FOLLOW.
[2020-01-11 15:30] VITALS: BP 106/59
--- NOTE | 2020-01-11 17:49 | NUR ---
WAS NOTIFIED FOR NEW ORDER FOR NICOTINE PATCH . PT IS SMOKER AND STATES HE NEEDS IT TO PREVENT NICOTINE WITHDRAWL. ORDER FAXED TO [facility].
[2020-01-11 18:35] VITALS: BP 144/76
--- NOTE | 2020-01-11 19:00 | NUR ---
RECEIVED REPORT FROM DAY NURSE, PATIENT APPEAR TO BE SLEEPING WITH EYES CLOSED, BREATHING EVEN AN D UNLABORED CALL LIGHT AT REACH.
--- NOTE | 2020-01-11 20:30 | NUR ---
PATIENT ALERT ORIENTED, WITH SALINE LOCK ON LAC G 20 PATENT AND FLUSHES WELL, LBM 6/6, RT LEG WEEPING WRAP WITH KERLIX, AND LEFT LEG ALSO WRAP WITH KERLIX, PATIENT HAS AN ORDER FOR WOUND CONSULT, ASSESSMENT DONE, PEDAL PULSES WEAK DOPPLER USED, C/O PAIN ON BLE WILL MEDICATE
--- NOTE | 2020-01-11 21:00 | NUR ---
NOTIFIED DR. DUPONT ABOUT PATIENT C/O PAIN ON BLE WITH ORDERS MADE.
--- NOTE | 2020-01-12 00:28 | NUR ---
PATIENT APPEARS TO BE SLEEPING WITH EYES CLOSED, BREATHING EVEN AND UNLABORED CALL LIGHT AT REACH.
[2020-01-12 03:40] VITALS: BP 114/60
--- NOTE | 2020-01-12 04:01 | NUR ---
PATIENT APPEARS TO BE SLEEPING WITH EYES CLOSED, NO DISCOMFORTS NOTED AT THIS TIME, RESPIRATION UNLABORED, CALL LIGHT AT REACH.
--- NOTE | 2020-01-12 07:36 | NUR ---
RECIEVED REPORT FROM JEFF HASSAN. PT SLEEPING IN SEMI FOWLERS POSITION UPON ENTERING ROOM. RESPIRATIONS ARE EVEN AND UNLABORED AT THIS TIME WITH NO SIGNS OF DISTRESS. NO SIGNS OF ANY PAIN OR DISCOMFORTS AT THIS TIME. WILL CONTINUE TO MONITOR.
--- NOTE | 2020-01-12 08:00 | NUR ---
ASSESSMENT AND VITALS COMPLETED AT THIS TIME. BP 120/68, HR 86, O2 98% ON ROOM AIR. RESPIRATIONS ARE EVEN AND UNLABORED AT THIS TIME. LUNG SOUNDS ARE CLEAR. HEART RHYTHM IS NORMAL. BOWEL SOUNDS ARE ACTIVE IN ALL QUADRANTS. RADIAL PULSES ARE STRONG WITH NORMAL CAPILLARY REFILL. PEDAL PULSES ARE WEAK. PT PRESENTS WITH DRESSING ON BOTH LOWER EXTREMITIES.PT COMPLAINED OF PAIN IN LOWER EXTREMITIES, LORTAB ADMINISTERED WITH MORNING MEDS. INFORMED IN REPORT THAT PT HAS DIABETIC ULCERS, PT WAS SUPPOSE TO BE FOLLOWING UP WITH WOUND CARE BUT FAILED TO . DRESSINGS ARE CDI AT THIS TIME. SKIN APPEARS MODERATLEY RED AND SCALEY WITH TRACE EDEMA IN LEFT LEG AND 1+ EDMEA IN RIGHT LEG. PT ALSO PRESENTS WITH RED BUMPS ALL OVER HIS BODY. PT STATED THAT "THEY WERE BITES THAT HE ALREADY HAD WHEN HE CAME IN." IV FLUSHED AT THIS TIME, SITE APPEARS HEALTHY AND PATENT.PT DENIES OF ANY OTHER PAIN OR DISCOMFORTS AT THIS TIME. ALL SAFTEY PRECAUTIONS IN PLACE WITH CALL LIGHT IN REACH. WILL CONTIUE TO MONITOR.
[2020-01-12 08:05] VITALS: BP 120/68
--- NOTE | 2020-01-12 12:00 | NUR ---
PT RESTING IN SEMI FOWLERS POSITION WATCHING TV. RESPIATIONS ARE EVEN AND UNLABORED. PT DENIES ANY PAIN OR DISCOMFORTS AT THIS TIME. ALL SAFETY PRECAUTIONS IN PLACE WITH CALL LIGHT IN REACH. WILL CONTINUE TO MONITOR.
[2020-01-12 15:04] VITALS: BP 110/62
--- NOTE | 2020-01-12 15:10 | NUR ---
AT BEDSIDE ASSESSING WOUNDS.
--- NOTE | 2020-01-12 16:00 | NUR ---
PT RESTING IN SEMI FOWLERS POSITION WATCHING TV. RESPIRATIONS ARE EVEN AND UNLABORED AT THIS TIME. ALL SAFTEY PRECAUTIONS IN PLACEW ITH CALL LIGHT IN REACH. WILL CONTINUE TO MONITOR.
--- NOTE | 2020-01-12 17:08 | NUR ---
DRESSING CHANGE PROVIDED TO BLE. RLE CLEANSED WITH SALINE AND DRESSED WITH SLIVER ALGINATE AND KERLEX PER ORDER.SKIN PREP PROVIDED FROM SMALLER WOUNDS.LLE CLEANSED AND SKIN PREP PROVIDED PER ;PT TOLERATED WELL;PT DENIES ANY ADDITIONAL NEEDS AND IS ENCOURAGED TO CALL FOR ASSISTANCE IF NEEDED;CALL LIGHT IN REACH;WILL CONTINUE TO MONITOR
[2020-01-12 18:56] VITALS: BP 132/80
--- NOTE | 2020-01-12 20:00 | NUR ---
PATIENT ALERT ORIENTED ABLE TO MAKE NEEDS KNONW, C/O PAIN ON BLE WILL MEDICATE. PATIENT HAS SALINE LOCK ON LAC PATENT FLUSHES WELL, LBM 6/, DRESSING ON RT LEG CDI, ASSESSMENT COMPLETED, CURRENTLY RESTING IN BED, BREATHING EVEN AND UNLABORED.
--- NOTE | 2020-01-13 01:53 | NUR ---
PATIENT AWAKE AT THIS TIME TALKING ON TYHE PHONE, BREATHING EVEN AND UNLABORED, CALL LIGHT AT REACH.
[2020-01-13 04:30] VITALS: BP 119/65
--- NOTE | 2020-01-13 04:59 | NUR ---
PATIENT SLEEPING AT THIS TIME, EYES CLOSED, NO DISCOMFORTS NOTED AT THIS TIME CALL LIGHT AT REACH.
--- NOTE | 2020-01-13 07:30 | NUR ---
REPORT RECEIVED FROM JEFF HASSAN. PT SITTING UP IN BED; ALERT AND ORIENTED. C/O 8/10 PAIN TO BILATERAL ANKLES AND FEET; DRESSING TO RLE WITH LARGE AMOUNT OF SEROUS DRAINAGE; DRESSING AND LINENS DAMP WITH DRAINAGE. LEFT FOOT WITH WEAK PULSE AND TRACE EDEMA; RIGHT FOOT ALSO WITH WEAK PULSE, EDEMA, AND REDNESS WITH WOUNDS. RESPIRATIONS EVEN AND UNLABORED ON ROOM AIR. PT ON CONTACT PRECAUTIONS FOR MRSA TO WOUNDS. PLAN OF CARE REVIEWED. PT ENCOURAGED TO VERBALIZE CONCERNS. STATES UNDERSTANDING. SAFETY MEASURES IN PLACE. CALL LIGHT WITHIN REACH.
[2020-01-13 08:00] VITALS: BP 124/75
--- NOTE | 2020-01-13 10:17 | NUR ---
AFTER SHOWER PT C/O SEVERE ITCHING TO REDNESS ON CHEST AND BACK; VERY RESTLESS AND SCRATCHING. LOTION PROVIDED AND WAS EFFECTIVE FOR ITCHING. IV SITE DISLODGED DURING SHOWER; NEW SITE PLACED TO LUISANA. ABT INFUSING WITHOUT DIFFICULTY. DRESSING REPLACED TO RLE AND LLE SKIN PREPPED.
--- NOTE | 2020-01-13 11:11 | NUR ---
BENEDRYL GIVEN FOR PERSISTENT ITCHING TO CHEST AND BACK.
--- NOTE | 2020-01-13 11:37 | NUR ---
PT AGAIN UP IN BATHROOM AND SPENDING A LOT OF TIME IN BATHROOM; CURRENTLY HAND WASHING HIS CLOTHES IN THE SINK. ROOM SMELLS LIKE CIGARETTE SMOKE. A PACK OF CIGARETTS FOUND IN SHORTS AND [employer] AT BEDSIDE; POCKET KNIFE ALSO FOUND. BELONGINGS REMOVED FROM BEDSIDE UNTIL DISCHARGE; PT NOTIFIED.
--- NOTE | 2020-01-13 12:13 | NUR ---
S: SAHIL BARFIELD is a 54 M who presents with cellulitis. He has a history of drug use. All medications in patient's chart were reviewed. O: VS: BP 124/75, P 87, RR 18,T 98.7 W 78kg, HT 75in, Scr= 0.8 Wound culture show PROTEUS MIRABILIS and MRSA P: Patient is on ZOSYN AND VANCO . Vancomycin ordered for pharmacy to dose. TROUGH IS 6 Start Vancomycin 1 GRAM IV Q8H. Vancomycin trough is drawn before the 4th dose on 01/14/20 @1400. Vancomycin goal trough is between 10-15 mcg/ml. Pharmacy will follow and or advise on antibiotics use as needed. KAMALJIT ACOSTA, PHARMD
--- NOTE | 2020-01-13 15:04 | NUR ---
VANCO INFUSING WITHOUT DIFFICULTY; IV SITE APPEARS HEALTHY. SOLUMEDROL GIVEN FOR CONTINUED ITCHING TO CHEST AND BACK AREAS. SEROUS DRAINAGE NOTED TO DRESSIN GOING RLE.
[2020-01-13 15:44] VITALS: BP 133/76
--- NOTE | 2020-01-13 17:47 | NUR ---
PT RESTING WITH EYES CLOSED AND NO SIGNS OF DISTRESS.
[2020-01-13 18:59] VITALS: BP 118/63
--- NOTE | 2020-01-14 01:16 | NUR ---
Appears asleep, resp unlabored, bilat leg dressings intact with serous drainageon gauge.
[2020-01-14 03:49] VITALS: BP 111/59
[2020-01-14 07:50] VITALS: BP 113/66
--- NOTE | 2020-01-14 07:50 | NUR ---
ASSESSMENT IS COMPLETED: IV SITE IS FREE FROM REDNESS OR EDEMA. HR IS REG,PULSES ARE STRONG X4, ABD IS SOFT WITH ACTIVE BS. R LEG HAS A DRESSING LARGE AMOUNT OF WEEPING NOTED. ALGINATE INTACT. PT TOOK DRESSING OFF AND THEN WAS GOING TO GET IN THE SHOWER. BREATH SOUNDS ARE CLEAR,BILATERALLY/
--- NOTE | 2020-01-14 10:20 | NUR ---
PT TOOK A SHOWER AND ABLE TO REMOVE THE DRESSING ON R LEG. REPLACED WITH SILVER ALGINATE AND COVERED WITH NO N ADHERENT DRESSING AND SECURED WITH KERLIX AND TAPE. PT TOLERATED WELL.,
[2020-01-14] MEDS ORDERED: BACTRIM DS1 TAB PO (11:34)
--- NOTE | 2020-01-14 12:45 | NUR ---
PT HAS BEEN AMBULATING IN THE ROOM. NO DISTRESS NOTED. IV SITE IS FREE FROM, REDNESS OR EDEMA.
--- NOTE | 2020-01-14 15:19 | NUR ---
PT IS BEING TREATED FOR CELLULITIS. VANCO ORDERED FOR PHARMACY TO DOSE. PT RECEIVING VANCO 1G IV Q8H. GOAL TROUGH = 10-15 MCG/ML. TROUGH TODAY 30 MIN B4 4TH DOSE WAS 11 MCG/ML. CONTINUE AT SAME DOSE. RE CHECK TROUGH ON 01/15 @ 1400. PHARMACY WILL CONTINUE TO FOLLOW
--- NOTE | 2020-01-14 16:05 | NUR ---
PT MEETING DAUGHTER DOWNSTAIRS. ALL BELONGINGS AND DISCHARGE PAPERS.
--- NOTE | 2020-01-14 16:05 | NUR ---
IV SITE DISCONTINUED CATHETER INTACT,. NO REDNESS OR EDEMA. PT RECEIVED DISCHARGE INSTRUCTIONS AND VERBALIZED UNDERSTANDING. INFORMED PT OF THE MRSA AND IMPORTANCE OF WASHING HANDS AND KEEP GRANDKIDS FROM TOUCHING ESPECIALLY IF IT IS STILL DRAINING. VERBALIZED UNDERSTANDIG.
--- NOTE | 2020-01-14 16:39 | NUR ---
Discharge instructions given. Patient verbalizes understanding of same. Discharged in stable condition via Ambulatory to Home with family. All belongings sent with pt.
== END 2020-01-14 16:05 | disposition home or self-care (01) | DRG 603 ==
LOC: ED 05:45 → ED-I 07:41 → ED 07:52 → MS2 07:53 → ED-I 07:53 → MS2 08:23
PROVIDERS: Emergency Medicine; ADMIT Internal Medicine; ATTEND Internal Medicine
DX: L03.115 Cellulitis of right lower limb (principal); L97.929 Non-pressure chronic ulcer of unspecified part of left lower leg with unspecified severity; L97.919 Non-pressure chronic ulcer of unspecified part of right lower leg with unspecified severity; L03.116 Cellulitis of left lower limb; I10 Essential (primary) hypertension; F17.210 Nicotine dependence, cigarettes, uncomplicated; R21 Rash and other nonspecific skin eruption; F15.10 Other stimulant abuse, uncomplicated; B96.4 Proteus (mirabilis) (morganii) as the cause of diseases classified elsewhere; B95.62 Methicillin resistant Staphylococcus aureus infection as the cause of diseases classified elsewhere; Z85.828 Personal history of other malignant neoplasm of skin; Z59.0 Homelessness; Z91.19 Patient's noncompliance with other medical treatment and regimen; Z11.59 Encounter for screening for other viral diseases
CPT/HCPCS: J1650; J3370

== ENCOUNTER 2020-02-29 13:34 | Inpatient (IN) | payer SELFPAY ==
[~2020-02-29] VITALS: Ht 190.5 cm; Wt 73.0 kg
--- NOTE | 2020-02-29 13:48 | NUR ---
ARRIVES TO ER VIA EMS STRETCHER, C/O BILATERAL LOWER EXT PAIN,
[2020-02-29 14:08] LABS: HEMATOCRIT 29.8 % (39.0-50.0); IMMATURE GRANULOCYTES 1.1 % (0.0-5.0); MEAN CELL VOLUME 93.4 fL CALC (80.0-100.0); MEAN CORPUSCULAR HGB 28.2 pG CALC (26.0-32.0); MEAN CORPUSCULAR HGB CONC 30.2 g/dL CAL (32.0-36.0); NEUT# 9.02 thou/uL (1.82-7.42); RED BLOOD COUNT 3.19 mill/uL (4.70-6.10); RED CELL DISTRI WIDTH 15.4 % (11.5-15.5)
[2020-02-29 14:35] LABS: ALBUMIN 4.3 g/dL (3.2-5.0); ALKALINE PHOSPHATASE 72 u/l (38-126); ANION GAP 11 (6-22 (CALC)); BILIRUBIN, TOTAL 0.7 mg/dL (0.0-1.4); BUN 17 mg/dL (9-20); BUN/CREATININE RATIO 17 (12-20 (CALC)); CARBON DIOXIDE 29 mmol/l (22-30); CHLORIDE 100 mmol/l (95-108); GFR > 60 ML/MIN (>=60 (CALC)); GFR FOR AFR.AMER. > 60 ML/MIN (>=60 (CALC)); POTASSIUM 4.2 mmol/l (3.5-5.1); SGOT/AST 27 u/l (17-59); SODIUM 136 mmol/l (137-146); TOTAL PROTEIN 8.8 g/dL (6.3-8.2)
--- NOTE | 2020-02-29 14:48 | NUR ---
PT IS RESTING ON STRETCGHER RECIEVING MEDICATIONS. NO DISTRESS NOTED
--- NOTE | 2020-02-29 15:33 | NUR ---
PT IS RESTING COMFORTABLY. NO DISTRESS NOTED
--- NOTE | 2020-02-29 16:33 | NUR ---
PT IS ASLEEP RESTING. PT IS AWARE OF ADMISSION.
--- NOTE | 2020-02-29 17:19 | NUR ---
REPORT REC FROM ELLEN AGUILAR
--- NOTE | 2020-02-29 17:28 | NUR ---
Admission Note Report Given to: [facility]ES[facility] Transported by: Wheelchair X Stretcher Transported with: X Nurse Transporter X Patent IV O2 Commercial Door Installer Location: ICU X [facility]
--- NOTE | 2020-02-29 17:29 | NUR ---
PT ARRIVED TO [facility] VIA STRETCHER ACCOMPANIED BY ELLEN AGUILAR. A&O X3. NO DISTRESS NOTED. PT REPORTS PAIN 7/10. CELLULITIS WITH MULTIPLE ULCERS NOTED TO BILATERAL LEGS, BOTH LEGS REDDENED AND WARM TO THE TOUCH. RASH LIKE APPERANCE NOTED TO BILATERAL ARMS. PT REPORTS TO BE HOMELESS AND ADMITS TO BE A DRUG USER, PER PT HE REPORTS TO HAVE USED METH YESTERDAY WITH THE OCCASSIONAL USE OF COCAINE. PT AVOIDING EYE CONTACT BUT ANSWERING QUESTIONS APPROPRIATELY AND COOPERATIVE WITH CARE, SLIGHT TREMORS NOTED. PT A CURRENT SMOKER, SMOKING 1PK A DAY. ASSESSMENT COMPLETED. ORIENTED PT TO ROOM. CALL LIGHT IN REACH. CONTINUE TO MONITOR.
[2020-02-29 17:50] VITALS: BP 120/70
--- NOTE | 2020-02-29 19:54 | NUR ---
Recieved report on pt in bed with eyes closed. no respiratory distress noted. will continue to observe.
[2020-02-29 20:28] VITALS: BP 111/61
--- NOTE | 2020-03-01 03:01 | NUR ---
PT IN BED WITH EYES CLOSED. NO S/S OF DISTRESS. IV MEDICATIONS GIVEN PRESCRIBED AND TOLERATING WELL. MEAL INTAKE GOOD. CONTINENT OF B/B AND USES URINAL WITH NO COMPLICATIONS. RESPIRATIONS ARE EVEN AND NON LABORED. CONTINUES WITH REDNESS TO LOWER EXTREMITIES. EASILY AROUSED. CALL LIGHT IS WITHIN REACH. WILL CONTINUE TO OBSERVE.
[2020-03-01 04:14] VITALS: BP 116/64
[2020-03-01 05:23] LABS: HEMATOCRIT 29.8 % (39.0-50.0); HEMOGLOBIN 8.8 g/dl (14.0-18.0); MEAN CELL VOLUME 95.8 fL CALC (80.0-100.0); MEAN CORPUSCULAR HGB 28.3 pG CALC (26.0-32.0); MEAN CORPUSCULAR HGB CONC 29.5 g/dL CAL (32.0-36.0); NEUT# 8.14 thou/uL (1.82-7.42); RED BLOOD COUNT 3.11 mill/uL (4.70-6.10); RED CELL DISTRI WIDTH 15.7 % (11.5-15.5)
--- NOTE | 2020-03-01 05:48 | NUR ---
PT IN BED WITH EYES CLOSED. NO S/SF DISTRESS. WOUNDS NOTED TO LOWER EXTREMITIES. BED LINENS CHANGED. PT HAS MODERATE AMOUNTS OF SEROSANQUINOUS DRAINAGE NOTED TO RIGHT LOWER EXTREMITY. PAINFUL TO TOUCH. ON IV ABT THERAPY. FLUIDS GIVEN BY MOUTH AND TOLERATED WELL. HAS NS RUNNING AT 100ML/HR AND TOLERATING WELL. CALL LIGHT WITHIN REACH AND BED IN LOWEST POSITION. WILL CONTINUE TO OBSERVE.
[2020-03-01 05:51] LABS: ANION GAP 6 (6-22 (CALC)); BUN 11 mg/dL (9-20); BUN/CREATININE RATIO 12 (12-20 (CALC)); CARBON DIOXIDE 29 mmol/l (22-30); CHLORIDE 105 mmol/l (95-108); CREATININE 0.9 mg/dL (0.7-1.3); GFR > 60 ML/MIN (>=60 (CALC)); GFR FOR AFR.AMER. > 60 ML/MIN (>=60 (CALC)); POTASSIUM 4.2 mmol/l (3.5-5.1); SODIUM 136 mmol/l (137-146)
[2020-03-01 07:50] VITALS: BP 115/63
--- NOTE | 2020-03-01 07:50 | NUR ---
RECIEVED REPORT FROM IRMA CINTRON. PT SLEEPING IN HIGH FOWLERS UPON ENTERING ROOM. INTRODUCED SELF TO PT AND DISCUSSED POC. ASSESSMENT AND VITALS OBTAINED AT THIS TIME. BP 115/63, HR 92, 02 97% ON ROOM AIR. RESPIRATIONS ARE EVEN AND UNLABORED WITH NO SIGNS OF DISTRESS.LUNG SOUNDS ARE CLEAR. HEART RHYTHM IS NORMAL. BOWEL SOUNDS ARE ACTIVE WITH NO TEDNERNESS, LAST REPORTED BM 02/28/20. RADIAL PULSES ARE STRONG AND PEDAL PULSES ARE WEAK, BOTH WITH NORMAL CAPILLARY REFILL. PT PRESENTS WITH ULCERATIONS ON LOWER EXTREMITIES, TOTAL OF 6 ON RIGHT LEG AND 2 ON LEFT LEG. CURRENTLY AWAITING ORDERS FOR DRESSINGS, WOUNDS OPEN TO AIR AT THIS TIME.PICTURES DOCUMENTED IN CHART. PT COMPLAINS OF 8/10 PAIN IN LOWER EXTREMITIES, TO BE NOTIFIED. #18 IN RAC RUNNING WITH FLUIDS AT 100 ML ORDERED, SITE APPEARS HEALTHY AND PATENT. PT DENIES ANY OTHER PAINS OR DISCOMFORTS AT THIS TIME.A LL SAFETY PRECAUTIONS ARE IN PLACE WITH CALL LIGHT IN REACH. WILL CONTINUE TO MONITOR
--- NOTE | 2020-03-01 08:01 | NUR ---
RECIEVED REPORT FROM IRMA CINTRON. PT RESTING IN SEMI FOWLERS POSITION WATCHING TV UPON ENTERING ROOM. INTRODUCED SELF TO PT AND DISCUSSED POC. ASSESSMENT AND VITALS COMPLETED AT THIS TIME. BP 144/94, HR 73, O2 97% ON ROOM AIR. RESPIRATIONS ARE EVEN AND UNLABORED WITH NO SIGNS OF DISTRESS. LUNG SOUNDS ARE CLEAR. HEART RHYTHM IS NORMAL WITH TELE IN PLACE. BOWEL SOUNDS ARE ACTIVE IN ALL QUADRANTS, ALST REPORETD BM 02/29/20. RADIAL AND PEDAL PULSES ARE BOTH STRONG WITH NORMAL CAPILLARY REFILL. SKIN IS WARM AND DRY, PT PRESENTS WITH SOME REDNESS ON BOTTOM. PT STATES ITS FROM PREVIOUS FISTULA SURGERY, BARRIER CREAM APPLIED AND ENCOURAGED Q2 TURNING. #22 IN RFA FLUSHED, SITE APPEARS HEALTHY AND PATENT. PT COMPLAINS OF ITCHING ON BACK, VISTARIL TO BE ADMINISTERED. PT DENEIS ANY PAIN OR DISCOMFORTS AT THIS TIME. ALL SAFETY PRECAUTIONS AE IN PLACE WITH CALL LIGHT IN REACH. WILL CONTINUE TO MONITOR
--- NOTE | 2020-03-01 08:45 | NUR ---
DR FELDMAN AT BEDSIDE DISCUSSING POC WITH PT.
--- NOTE | 2020-03-01 09:43 | NUR ---
S: MARCELO BARFIELD is a 54 M who presents with cellulitis. He has a history of cellulitis, MRSA, and proteus mirabilis infection. All medications in patient's chart were reviewed. O: VS: BP 129/68, P 95 bpm, RR 16 breaths per min, T 98.3 degrees F W 73.113 kg , HT 190.5 cm, Scr= 0.9, CrCl= 98 mL/min A: Wound culture shows abundant gram negative rods. P: Patient is on vancomycin 1g IV q12h and piperacillin sodium and tazobactam 3.375g IV q6h. Vancomycin ordered for pharmacy to dose. Start Vancomycin 1g IV Q12H. Vancomycin trough is drawn before the 4th dose on March 02 2020 @ 0130. Vancomycin goal trough is between 10-15 mcg/ml. Pharmacy will follow and or advise on antibiotics use as needed.
--- NOTE | 2020-03-01 12:51 | NUR ---
REASSESSMENT OF PAIN AT THIS TIME. PT STATES THAT PAIN IS STILL CURRENTLY A 8/10 IN LOWER EXTREMITIES. HARRIST TO BE NOTIFIED. RESPIRATIONS ARE EVEN AND UNLABORED WTIH NO SIGNS OF DISTRESS. PT DENIES ANY OTHER ADDITIONAL NEEDS AT THIS TIME. ALL SAFETY PRECAUTIONS ARE IN PLACE WITH CALL LIGHT IN ERACH. WILL CONTINUE TO MONITOR.
--- NOTE | 2020-03-01 12:59 | NUR ---
Patient is screened for rehab intervention and no needs are identified at this time
[2020-03-01 15:00] VITALS: BP 99/58
--- NOTE | 2020-03-01 15:10 | NUR ---
WOUND CARE AT BEDSIDE DISCUSSING POC AT THIS TIME. ORDERS TO APPLY HYDROGEL TO WOUND ON RIGHT LEG WRAPPED WITH CRALEX AND SECUREED WITH PAPER TAPE. ORDERS FOR HYRODGEL . ALL SAFTEY PRECAUTIONS ARE IN PLACE WITH CALL LIGHT IN REACH. WILL CONTINUE TO MONITOR
--- NOTE | 2020-03-01 15:38 | NUR ---
REASSESSMENT OF PAIN AT THIS TIME RESULTING IN 02/12. PT STATES THAT TORADOL IS HELPING.PT APPEARS TO STILL BE DROWSY. RESPIRATIONS ARE EVEN AND UNLABORED WITH NO SIGNS OF DISTRESS. ALL SAFETY PRECAUTIONS ARE IN PLACE WITH CALL LIGTH IN REACH.
--- NOTE | 2020-03-01 16:40 | NUR ---
SPOKE WITH BLAS FROM PHARMACY ABOUT HYDROGEL. WASNT SURE IF HYOGEL WAS PROVIDED FROM PHARMACY.PHARMACY INFORMED WRITTER THAT THEY WILL CALL BACK ONCE FOUND OUT.
--- NOTE | 2020-03-01 17:15 | NUR ---
PHARMACY INFORMED WRITTER THAT HYDROGEL WAS PROVIDED FROM [facility]. JEFF SALAS CALL TO ASSIST WITH GETTING HYDROGEL. WRITTER INFORMED THAT [facility] WILL BE CALLED TO GET HYDROGEL.
--- NOTE | 2020-03-01 17:50 | NUR ---
WRITTER SPOKE WITH PUMPMAN THAT GOT IN CONTACT WITH [facility]. WRITTER WAS NOTIFIED THAT HYDROGEL WAS TO BE SPECIAL ORDERED AND COULD NOT BE ORDERED UNTIL TOMORROW. NOT ABLE TO GET INTO CONTACT WITH [facility] DUE TO IT BEING AFTER HOURS. BUCKLE SEWER MD, DR DUPONT NOTIFED. ORDERS TO LEAVE WOUNDS IS AND WILL GET INTO CONTACT WITH WOUND CARE IN THE MORNING. PT NOTIFED OF EVENTS, VERBALIZED UNDERSTANDING.
[2020-03-01 18:30] VITALS: BP 113/66
--- NOTE | 2020-03-01 19:00 | NUR ---
RECEIVED REPORT FROM NURSE KINGSTON, PATIENT AWAKE EATING AND WATCHING TV,BREATHING EVEN AND UNLABORED, CALL LIGHT AT REACH.
--- NOTE | 2020-03-01 20:30 | NUR ---
PATIENT ALERT ORIENTED, ABLE TO MAKE NEEDS KNOWN, WITH ONGOING IV ON RAC NS @ 100CC/HR INFUSING WELL ON RAC, LBM 02/28, NOTED TO HAVE OPEN WOUNDS ON BLE, C/O PAIN PS 11/13, WILL MEDICATE, CALL LIGHT AT REACH.
--- NOTE | 2020-03-02 00:23 | NUR ---
PATIENT AWAKE AT THIS TIME C/O PAIN ON BLE, PRN TORADOL GIVEN WAS NOT EFFECTIVE, PATIENT REQUESTED TYLENOL, WILL REEVALUATE.
[2020-03-02 03:30] VITALS: BP 111/79
--- NOTE | 2020-03-02 03:43 | NUR ---
PATIENT RESTING IN BED WITH EYES CLOSED, BREATHING EVEN AND UNLABORED, CALL LIGHT AT REACH.
--- NOTE | 2020-03-02 10:15 | NUR ---
S: MARCELO BARFIELD is a 54 M who presents with cellulitis. He has a history of osteoarthritis, recurrence of cellulitis, hypertension and chronic lower extremity ulcers. All medications in patient's chart were reviewed. O: VS: BP 111/79 mmHg, P 66 bpm, RR 21 breaths/min, T 96.6 F W 73 kg, HT 190.5 cm, Scr= 0.9 mg/dL, CrCl= 98 ml/min A: Blood culture is pending. Wound culture final is showing Pseudomonas Aeruginosa which is sensitive to Zosyn. P: Patient is on Zosyn 3.375g IV Q6H. Vancomycin ordered for pharmacy to dose. Patient was recieving vancomycin 1g iv Q12H and trough level was 7 mcg/ml on 03/02/2020. Change Vancomycin to 1000mg IV Q8H. Vancomycin trough is drawn before the 4th dose on 03/03/2020 0130. Vancomycin goal trough is between 10-15 mcg/ml. Pharmacy will follow and or advise on antibiotics use as needed.
--- NOTE | 2020-03-02 11:20 | NUR ---
PT UP IN BED WITH EYES OPEN AND ABLE TO MAKE NEEDS KNOWN. PT HAS MULTIPLE AREAS TO BILATERAL LOWER EXTREMITIES. DRESSING IN PLACE TO RIGHT LOWER EXTREMITY. MEDICATIONS GIVEN AND TOLERATED WELL. COMPLAINED OF PAIN TO BILAT LOWER EXTREMITIES AND MEDICATED FOR PAIN AND EFFECTIVE. CONTINENT OF B/B AND USES URINAL AT BEDSIDE. CONTINUES WITH SCABBED AREAS TO BILATERAL UPPER EXTREMITIES AND EDUCATED PT NOT TO BE PICKING AT SKIN TO PREVENT INFECTION AND HE STATED HE UNDERSTANDS. CALL LIGHT WITHIN REACH. WILL CONTINUE TO OBSERVE.
[2020-03-02 15:00] VITALS: BP 125/69
--- NOTE | 2020-03-02 19:00 | NUR ---
RECEIVED REPORT FROM NURSE GLORIA PATIENT AWAKE WATCHING TV, BREATHING EVEN AND UNLABORED CALL LIGHT AT REACH.
[2020-03-02 20:10] VITALS: BP 130/79
--- NOTE | 2020-03-02 20:20 | NUR ---
PT IN BED WITH EYES OPEN AND ABLE TO MAKE NEEDS KNOWN. DRESSING INTACT TO RIGHT LOWER EXTREMITY. SHOWER COMPLETED THIS AM. PT CONTINUES ON CONTACT PRECAUTIONS FOR SCABIES. MEAL AND FLUID INTAKE ADEQUATE. CONTINUES ON IV ABT THERAPY. CALL LIGHT WITHIN REACH. WILL CONTINUE TO OBSERVE.
--- NOTE | 2020-03-02 21:00 | NUR ---
PATIENT ALERT ORIENTED ABLE TO MAKE NEEDS KNONW, WITH ONGOING IV NS @ 100CC/HR INFUSING WELL ON RAC G20, LBM 03/02, DRESSING ON RT LEG CDI, DENIES PAIN AT THIS TIME, CURRENTLY WATCHING TYV CALL LIGHT AT REACH.
--- NOTE | 2020-03-03 00:45 | NUR ---
PATIENT APPEARS TO BE SLEEPING WITH EYES CLOSED, BREATHING EEVN AND UNLABORED, NO DISCOMFORTS NOTED, DUE ANTIBIOTIC GIVEN CALL LIGHT AT REACH.
[2020-03-03 01:41] LABS: HEMATOCRIT 31.6 % (39.0-50.0); HEMOGLOBIN 9.5 g/dl (14.0-18.0); MEAN CELL VOLUME 94.6 fL CALC (80.0-100.0); MEAN CORPUSCULAR HGB 28.4 pG CALC (26.0-32.0); MEAN CORPUSCULAR HGB CONC 30.1 g/dL CAL (32.0-36.0); RED BLOOD COUNT 3.34 mill/uL (4.70-6.10); RED CELL DISTRI WIDTH 15.4 % (11.5-15.5)
[2020-03-03 01:57] LABS: ANION GAP 8 (6-22 (CALC)); BUN 9 mg/dL (9-20); BUN/CREATININE RATIO 11 (12-20 (CALC)); CARBON DIOXIDE 27 mmol/l (22-30); CHLORIDE 106 mmol/l (95-108); CREATININE 0.9 mg/dL (0.7-1.3); GFR > 60 ML/MIN (>=60 (CALC)); GFR FOR AFR.AMER. > 60 ML/MIN (>=60 (CALC)); SODIUM 138 mmol/l (137-146)
[2020-03-03 03:38] VITALS: BP 122/66
--- NOTE | 2020-03-03 04:09 | NUR ---
PATIENT RESTING IN BED EYES CLOSED,NOT IN DISTRESS CALL LIGHT AT REACH.
--- NOTE | 2020-03-03 07:49 | NUR ---
received report and pt in bed with eyes closed. no respiratory distress noted. call light within reach.
--- NOTE | 2020-03-03 09:39 | NUR ---
S: MARCELO BARFIELD is a 54 M who presents with cellulitis. He has a history of osteoarthritis, herniated disc, and hypertension. All medications in patient's chart were reviewed. O: VS: BP 122/66 mmHg, P64 bpm, RR 20 breaths/min, T 98.5 F W 73 kg, HT 190.5 cm, Scr= 0.9 mg/dL, CrCl= 98.1 ml/min A: Blood culture is pending. Wound culture shows pseudomonas aeruginosa which is sensitive to Zosyn. P: Patient is on Zosyn 3.375 g IV Q6H. Vancomycin ordered for pharmacy to dose. Vancomycin trough level is 14 mcg/mL on 03/03. Continue with Vancomycin 1g IV Q8H. Vancomycin trough is drawn before the 4th dose on 03/04 at 0130. Vancomycin goal trough is between 10-15 mcg/ml. Pharmacy will follow and or advise on antibiotics use as needed.
[2020-03-03 17:37] VITALS: BP 121/69
[2020-03-03 19:21] VITALS: BP 135/74
--- NOTE | 2020-03-03 19:49 | NUR ---
PT IN BED WITH EYES OPEN. ABLE TO MAKE NEEDS KNOWN. MEDICATED FOR PAIN AND EFFECTIVE. DR. OWEN CALLED REGARDING NO HYDROGEL PER ORDERS SO ORDERS CHANGED TO ALGINATE. DRESSING CHANGE COMPLETED AND TOLERATED WELL. CONTINUES ON FLUIDS AT 100ML/HR. ABT THERAPY WITH NO ADVERSE SIDE EFFECTS. CONTINENT OF B/B AND USES URINAL. CALL LIGHT WITHIN REACH AND BED IN LOWEST POSITION. WILL CONTINUE TO OBSERVE.
--- NOTE | 2020-03-03 20:50 | NUR ---
PT ASSESSED AND MEDICATED ORDERS PROVIDE. NO S/O DISTRESS NOTED. PT MEDICATED FOR PAIN 8/10 ON PAIN SCALE. DRESSING TO RLE CDI.
--- NOTE | 2020-03-04 00:32 | NUR ---
PT MEDICATED W/IV ANTIBIOTIC THERAPY. PT SLEEPING SOUNDLY AT THIS TIME. NO S/O DISTRESS.
--- NOTE | 2020-03-04 04:46 | NUR ---
PT SLEEPING, IV ANTIBIOTIC THERAPY ADMINISTERED AT THIS TIME. TACKING STITCH REMOVER IN W/PT OBTAINING V/S. NO S/O DISTRESS NOTED.
[2020-03-04 04:47] VITALS: BP 110/66
--- NOTE | 2020-03-04 07:05 | NUR ---
REPORT RECEIVED FROM JEFF KING.
[2020-03-04 08:49] VITALS: BP 119/73
--- NOTE | 2020-03-04 08:50 | NUR ---
PT RESTING IN SEMI FOWLERS POSITION,A&O X3;VS OBTAINED AND ASSESSMENT COMPLETED;PT DENIES ANY CURRENT PAIN OR DISCOMFORTS,PAIN SCALE AND REPORTING EDUCATED;RESPIRATIONS EVEN AND UNLABORED ON RA,CLEAR LUNG SOUNDS;ABDOMEN SOFT ON PALPATION AND ACTIVE IN ALL4 QUADRANST;STRONG PEDAL PULSES;DRESSING IN PLACE TO RLE;MULTIPLE SCABBED AREAS NOTED THROUGHOUT BODY;#22G TO RIGHT HAND FLUSHED AND PATENT,SITE APPEARS HEALTHY;PT DENIES ANY ADDITIONAL NEEDS AT THIS TIME AND IS ENCOURAGED TO CALL FOR ASSISTANCE IF NEEDED;FALL PRECAUTIONS IN PLACE WITH BED IN THE LOWEST POSITION AND CALL LIGHT IN REACH;WILL CONTINUE TO MONITOR
--- NOTE | 2020-03-04 12:30 | NUR ---
PT RESTING IN SEMI FOWLERS POSITION;RESPIRATIONS EVEN AND UNLABORED ON RA;PT DENIES ANY CURRENT PAIN OR NEEDS;IV ABX STARTED AT THIS TIME;DRESSING TO RLE CHANGED PER ORDER AND PT TOLERATED WELL;PT DENIES ANY ADDITIONAL NEEDS AT THIS TIME AND IS ENCOURAGED TO CALL FOR ASSISTANCE IF NEEDED;CALL LIGHT IN REACH;WILL CONTINUE TO MONITOR
--- NOTE | 2020-03-04 16:10 | NUR ---
PT RESTING IN SEMI FOWLERS POSITION;RESPIRATIONS EVEN AND UNLABORED ON RA;PT REPORTS BLE PAIN AND REQUESTS PRN TORADOL, TORADOL 15MG IVP ADMINISTERED AT THIS TIME PER ORDER;#18G TO RAC REMOVED DUE TO EXPIRATION DATE AND NEW #22G STARTED TO LAC ON FIRST ATTEMPT BY THIS WRITTER AND PT TOLERATED WELL;PT DENIES ANY ADDITIONAL NEEDS AT THIS TIME;ENCOURAGED TO CALL FOR ASSISTANCE IF NEEDED;CALL LIGHT IN REACH;WILL CONTINUE TO MONITOR
[2020-03-04 17:00] VITALS: BP 134/83
[2020-03-04 19:27] VITALS: BP 130/79
--- NOTE | 2020-03-04 20:46 | NUR ---
VFX ARTIST ENTERED ROOM, PT WAS SITTING IN RECLINER. UPON ASKING PT HOW HE WAS DOING THIS EVENING, HE REPLIED WITH, "I HAVE A DILEMMA." PT PROCEEDED TO EXPLAIN THAT HE FOUND A PLACE TO STAY, BUT HE HAS TO GET THERE TONIGHT OR THEY WILL GIVE IT TO SOMEONE ELSE, BUT HE WANTS TO CONTINUE OUTPT TREATMENT FOR HIS LEGS. I DISCUSSED PT'S POSSIBLE OPTIONS AND ASKED IF I COULD CALL THE PROVIDER FIRST TO RECEIVE ORDERS FOR DISCHARGE OR FUTURE TREATMENT POSSIBILITIES. PHSYCIAN NOTIFIED AND NEW ORDERS RECEIVED.
--- NOTE | 2020-03-04 21:10 | NUR ---
PT SELF AMUBULATED OFF MED SURG UNIT AT THIS TIME. AMA PAPERS HAVE BEEN SIGNED, IV SITE REMOVED AND ALL BELONGINGS GATHERED. PT WAS OFFERED ASSISTANCE GETTING DOWNSTAIRS, BUT DENIED NEED. PT WHEELED BICYCLE ALONG W/BELONGINGS TO ELEVATOR. PT WAS IN STABLE CONDITION UPON LEAVING. LEGS WRAPPED W/DRESSINGS BILATERALLY. PHYSICIAN HAS BEEN NOTIFIED AND ORDERS FOR PT OUTPATIENT ANTIBIOTIC THERAPY TREATMENT RECEIVED. PRIVATE WATCHMAN NOTIFIED AND INSTRUCTIONS PROVIDED TO PT FOR CONTACTING [facility] IN IV THERAPY IN THE NEXT MORNING TO SET UP TREATMENT. PT VERBALIZED UNDERSTANDING AND HAS PAPERWORK PROVIDED W/INFORMATION UPON LEAVING UNIT.
--- NOTE | 2020-03-05 10:37 | NUR ---
WOUND CX SHOWS PSEUDOMONAS SENSITIVE TO CIPROFLOXACIN. DR FONTANEZ WROTE FOR DAPTOMYCIN 4MG/KG, NOT APPROPRIATE FOR PSEUDOMONAS. SPOKE WITH KAM URBANO, RECOMMENDED WRITING FOR CIPROFLOXACIN 750MG PO BID, KAM AGREED. RX CALLED IN TO [facility]. CALLED PT, LM TO CALL BACK. WILL F/U THIS AFTERNOON AND SEND CERTIFIED LETTER IF UNABLE TO REACH PT.
--- NOTE | 2020-03-05 15:32 | NUR ---
CERTIFIED LETTER MAILED TO PT TODAY NOTIFYING HIM OF NEW RX CALLED IN TO [facility]
== END 2020-03-04 21:10 | disposition left against medical advice (07) | DRG 603 ==
LOC: ED 13:34 → ED-I 15:20 → ED 16:01 → ED-I 16:02 → MS2 16:21
PROVIDERS: Nurse Practitioner; ADMIT Internal Medicine; ATTEND Internal Medicine
DX: L03.115 Cellulitis of right lower limb (principal); L97.929 Non-pressure chronic ulcer of unspecified part of left lower leg with unspecified severity; L97.919 Non-pressure chronic ulcer of unspecified part of right lower leg with unspecified severity; L03.116 Cellulitis of left lower limb; D64.9 Anemia, unspecified; F15.10 Other stimulant abuse, uncomplicated; B86 Scabies; I10 Essential (primary) hypertension; M19.90 Unspecified osteoarthritis, unspecified site; F17.210 Nicotine dependence, cigarettes, uncomplicated; B96.5 Pseudomonas (aeruginosa) (mallei) (pseudomallei) as the cause of diseases classified elsewhere; Z91.19 Patient's noncompliance with other medical treatment and regimen; Z59.0 Homelessness; Z11.59 Encounter for screening for other viral diseases
CPT/HCPCS: J1650

== ENCOUNTER 2020-06-19 17:53 | Emergency (ER) | payer SELFPAY ==
[~2020-06-19] VITALS: Ht 190.5 cm; Wt 73.0 kg
[2020-06-19 18:45] LABS: HEMATOCRIT 28.3 % (39.0-50.0); HEMOGLOBIN 8.5 g/dl (14.0-18.0); IMMATURE GRANULOCYTES 1.1 % (0.0-5.0); MEAN CELL VOLUME 90.1 fL CALC (80.0-100.0); MEAN CORPUSCULAR HGB 27.1 pG CALC (26.0-32.0); NEUT# 14.46 thou/uL (1.82-7.42); RED BLOOD COUNT 3.14 mill/uL (4.70-6.10); RED CELL DISTRI WIDTH 16.9 % (11.5-15.5)
[2020-06-19 19:23] LABS: ALBUMIN 3.6 g/dL (3.2-5.0); ALKALINE PHOSPHATASE 79 u/l (38-126); ANION GAP 13 (6-22 (CALC)); BUN 13 mg/dL (9-20); BUN/CREATININE RATIO 15 (12-20 (CALC)); CARBON DIOXIDE 28 mmol/l (22-30); CHLORIDE 98 mmol/l (95-108); CREATININE 0.9 mg/dL (0.7-1.3); GFR > 60 ML/MIN (>=60 (CALC)); GFR FOR AFR.AMER. > 60 ML/MIN (>=60 (CALC)); POTASSIUM 4.8 mmol/l (3.5-5.1); SGOT/AST 17 u/l (17-59); SODIUM 134 mmol/l (137-146); TOTAL PROTEIN 8.1 g/dL (6.3-8.2)
[2020-06-19 19:25] LABS: BILIRUBIN, TOTAL 0.4 mg/dL (0.0-1.4)
[2020-06-20] VITALS: BP 107/57
--- NOTE | 2020-06-22 08:16 | NUR ---
WOUND CULTURE RESULTS FAXED TO [facility] [phone]
== END 2020-06-20 00:48 | disposition short-term general hospital (02) | DRG 872 ==
LOC: ED 17:53
DX: A41.9 Sepsis, unspecified organism (principal); L03.116 Cellulitis of left lower limb; L03.115 Cellulitis of right lower limb; L97.919 Non-pressure chronic ulcer of unspecified part of right lower leg with unspecified severity; L97.929 Non-pressure chronic ulcer of unspecified part of left lower leg with unspecified severity; D64.9 Anemia, unspecified; I10 Essential (primary) hypertension; F17.210 Nicotine dependence, cigarettes, uncomplicated; B96.89 Other specified bacterial agents as the cause of diseases classified elsewhere; Z20.828 Contact with and (suspected) exposure to other viral communicable diseases
CPT/HCPCS: Q9967

== ENCOUNTER 2021-09-30 18:07 | Inpatient (IN) | payer SELFPAY ==
[~2021-09-30] VITALS: Ht 188 cm; Wt 75.0 kg
[2021-09-30 19:55] LABS: ALBUMIN 3.5 g/dL (3.2-5.0); ALKALINE PHOSPHATASE 117 u/l (38-126); ANION GAP 13 (6-22 (CALC)); BUN 17 mg/dL (9-20); BUN/CREATININE RATIO 19 (12-20 (CALC)); CARBON DIOXIDE 25 mmol/l (22-30); CHLORIDE 106 mmol/l (95-108); CREATININE 0.9 mg/dL (0.7-1.3); ETHYL ALCOHOL 0 mg/dl (0-30); GFR > 60 ML/MIN (>=60 (CALC)); GFR FOR AFR.AMER. > 60 ML/MIN (>=60 (CALC)); MAGNESIUM 2.2 mg/dL (1.6-2.3); POTASSIUM 4.2 mmol/l (3.5-5.1); SGOT/AST 21 u/l (17-59); SODIUM 140 mmol/l (137-146); TOTAL PROTEIN 7.3 g/dL (6.3-8.2)
[2021-09-30 20:01] LABS: MEAN CELL VOLUME 89.6 fL CALC (80.0-100.0); MEAN CORPUSCULAR HGB 26.7 pG CALC (26.0-32.0); MEAN CORPUSCULAR HGB CONC 29.8 g/dL CAL (32.0-36.0); NEUT# 18.83 thou/uL (1.82-7.42); RED BLOOD COUNT 4.15 mill/uL (4.70-6.10); RED CELL DISTRI WIDTH 17.8 % (11.5-15.5)
[2021-09-30 20:13] LABS: BILIRUBIN, TOTAL 0.1 mg/dL (0.0-1.4)
[2021-09-30 20:14] LABS: HEMATOCRIT 37.2 % (39.0-50.0); HEMOGLOBIN 11.1 g/dl (14.0-18.0); IMMATURE GRANULOCYTES 9.4 % (0.0-5.0)
[2021-10-01] VITALS: BP 155/77
[2021-10-01 00:37] LABS: URINE BILIRUBIN - DIPSTICK NEGATIVE (NEGATIVE); URINE BLOOD DIPSTICK NEGATIVE (NEGATIVE); URINE COLOR YELLOW; URINE GLUCOSE - DIPSTICK NEGATIVE (NEGATIVE); URINE KETONE NEGATIVE (NEGATIVE); URINE LEUK ESTERASE NEGATIVE (NEGATIVE); URINE NITRITE - DIPSTICK NEGATIVE (Negative); URINE PROTEIN - DIPSTICK TRACE mg/dL (NEG-TRACE); URINE SPECIFIC GRAVITY 1.025; URINE UROBILINOGEN - DIPSTICK 0.2 E.U./dL (0.2)
[2021-10-01 04:00] VITALS: BP 117/62
[2021-10-01 08:04] VITALS: BP 128/71
[2021-10-01 16:38] VITALS: BP 127/68
[2021-10-01 19:00] VITALS: BP 118/69
[2021-10-02] VITALS (11 sets, daily range): BP systolic 100–145; BP diastolic 49–86
[2021-10-02 05:42] LABS: ALBUMIN 2.8 g/dL (3.2-5.0); ALKALINE PHOSPHATASE 87 u/l (38-126); ANION GAP 12 (6-22 (CALC)); BILIRUBIN, TOTAL 0.1 mg/dL (0.0-1.4); BUN 9 mg/dL (9-20); BUN/CREATININE RATIO 9 (12-20 (CALC)); CARBON DIOXIDE 26 mmol/l (22-30); CHLORIDE 103 mmol/l (95-108); GFR > 60 ML/MIN (>=60 (CALC)); GFR FOR AFR.AMER. > 60 ML/MIN (>=60 (CALC)); POTASSIUM 3.8 mmol/l (3.5-5.1); SGOT/AST 16 u/l (17-59); SODIUM 137 mmol/l (137-146); TOTAL PROTEIN 6.1 g/dL (6.3-8.2)
[2021-10-02 05:48] LABS: MEAN CELL VOLUME 91.2 fL CALC (80.0-100.0); MEAN CORPUSCULAR HGB 26.7 pG CALC (26.0-32.0); MEAN CORPUSCULAR HGB CONC 29.3 g/dL CAL (32.0-36.0); NEUT# 16.63 thou/uL (1.82-7.42); RED BLOOD COUNT 2.62 mill/uL (4.70-6.10); RED CELL DISTRI WIDTH 17.6 % (11.5-15.5)
[2021-10-02 06:18] LABS: HEMATOCRIT 23.9 % (39.0-50.0); IMMATURE GRANULOCYTES 10.4 % (0.0-5.0)
[2021-10-02 12:36] LABS: HEMATOCRIT 21.1 % (39.0-50.0); HEMOGLOBIN 6.4 g/dl (14.0-18.0)
[2021-10-03] VITALS (10 sets, daily range): BP systolic 105–136; BP diastolic 59–82
[2021-10-03 05:30] LABS: HEMATOCRIT 24.3 % (39.0-50.0); MEAN CELL VOLUME 94.6 fL CALC (80.0-100.0); MEAN CORPUSCULAR HGB 27.2 pG CALC (26.0-32.0); MEAN CORPUSCULAR HGB CONC 28.8 g/dL CAL (32.0-36.0); RED BLOOD COUNT 2.57 mill/uL (4.70-6.10); RED CELL DISTRI WIDTH 17.6 % (11.5-15.5)
[2021-10-03 05:39] LABS: ANION GAP 10 (6-22 (CALC)); BUN 9 mg/dL (9-20); BUN/CREATININE RATIO 11 (12-20 (CALC)); CARBON DIOXIDE 27 mmol/l (22-30); CHLORIDE 102 mmol/l (95-108); CREATININE 0.8 mg/dL (0.7-1.3); GFR > 60 ML/MIN (>=60 (CALC)); GFR FOR AFR.AMER. > 60 ML/MIN (>=60 (CALC)); POTASSIUM 3.9 mmol/l (3.5-5.1); SODIUM 135 mmol/l (137-146)
[2021-10-04 04:00] VITALS: BP 115/68
[2021-10-04 05:01] LABS: MEAN CELL VOLUME 90.2 fL CALC (80.0-100.0); MEAN CORPUSCULAR HGB 27.9 pG CALC (26.0-32.0); RED BLOOD COUNT 3.58 mill/uL (4.70-6.10); RED CELL DISTRI WIDTH 16.5 % (11.5-15.5)
[2021-10-04 05:21] LABS: ANION GAP 11 (6-22 (CALC)); BUN 11 mg/dL (9-20); BUN/CREATININE RATIO 11 (12-20 (CALC)); CARBON DIOXIDE 29 mmol/l (22-30); CHLORIDE 102 mmol/l (95-108); GFR > 60 ML/MIN (>=60 (CALC)); GFR FOR AFR.AMER. > 60 ML/MIN (>=60 (CALC)); POTASSIUM 4.2 mmol/l (3.5-5.1); SODIUM 138 mmol/l (137-146)
[2021-10-04 05:28] LABS: HEMATOCRIT 32.3 % (39.0-50.0)
[2021-10-04 08:10] VITALS: BP 140/77
[2021-10-04 16:28] VITALS: BP 140/77
[2021-10-04 17:02] VITALS: BP 147/80
[2021-10-04 18:48] VITALS: BP 128/80
[2021-10-05 04:00] VITALS: BP 145/75
[2021-10-05 06:25] LABS: HEMATOCRIT 31.3 % (39.0-50.0); HEMOGLOBIN 9.7 g/dl (14.0-18.0); IMMATURE GRANULOCYTES 13.9 % (0.0-5.0); MANUAL DIFFERENTIAL YES; MEAN CORPUSCULAR HGB 28.2 pG CALC (26.0-32.0); PLATELET COUNT 361 thou/uL (130-400); RED BLOOD COUNT 3.44 mill/uL (4.70-6.10); RED CELL DISTRI WIDTH 16.6 % (11.5-15.5)
[2021-10-05 06:32] LABS: ALBUMIN 3.2 g/dL (3.2-5.0); ALKALINE PHOSPHATASE 99 u/l (38-126); ANION GAP 12 (6-22 (CALC)); BILIRUBIN, TOTAL 0.1 mg/dL (0.0-1.4); BUN 20 mg/dL (9-20); BUN/CREATININE RATIO 21 (12-20 (CALC)); CARBON DIOXIDE 29 mmol/l (22-30); CHLORIDE 103 mmol/l (95-108); CREATININE 0.9 mg/dL (0.7-1.3); GFR > 60 ML/MIN (>=60 (CALC)); GFR FOR AFR.AMER. > 60 ML/MIN (>=60 (CALC)); POTASSIUM 3.7 mmol/l (3.5-5.1); SGOT/AST 23 u/l (17-59); SODIUM 140 mmol/l (137-146); TOTAL PROTEIN 6.7 g/dL (6.3-8.2)
[2021-10-05 06:50] LABS: BAND 3 % (0-8)
[2021-10-05 08:00] VITALS: BP 145/75
[2021-10-05 15:26] VITALS: BP 130/71
[2021-10-05 19:45] VITALS: BP 123/69
[2021-10-06 04:00] VITALS: BP 117/69
[2021-10-06 06:06] LABS: ANION GAP 12 (6-22 (CALC)); BUN 27 mg/dL (9-20); BUN/CREATININE RATIO 30 (12-20 (CALC)); CARBON DIOXIDE 28 mmol/l (22-30); CHLORIDE 102 mmol/l (95-108); CREATININE 0.9 mg/dL (0.7-1.3); GFR > 60 ML/MIN (>=60 (CALC)); GFR FOR AFR.AMER. > 60 ML/MIN (>=60 (CALC)); MAGNESIUM 2.3 mg/dL (1.6-2.3); POTASSIUM 3.8 mmol/l (3.5-5.1); SODIUM 138 mmol/l (137-146)
[2021-10-06 06:27] LABS: HEMATOCRIT 32.2 % (39.0-50.0); HEMOGLOBIN 9.7 g/dl (14.0-18.0); MEAN CELL VOLUME 93.1 fL CALC (80.0-100.0); MEAN CORPUSCULAR HGB CONC 30.1 g/dL CAL (32.0-36.0); RED BLOOD COUNT 3.46 mill/uL (4.70-6.10)
[2021-10-06 08:00] VITALS: BP 153/83
[2021-10-06 14:33] VITALS: BP 109/61
[2021-10-06 19:00] VITALS: BP 104/69
[2021-10-06 19:02] VITALS: BP 104/69
[2021-10-07 04:00] VITALS: BP 110/61
[2021-10-07 06:15] LABS: HEMATOCRIT 32.4 % (39.0-50.0); HEMOGLOBIN 9.9 g/dl (14.0-18.0); MEAN CORPUSCULAR HGB 28.1 pG CALC (26.0-32.0); MEAN CORPUSCULAR HGB CONC 30.6 g/dL CAL (32.0-36.0); RED BLOOD COUNT 3.52 mill/uL (4.70-6.10); RED CELL DISTRI WIDTH 17.3 % (11.5-15.5)
[2021-10-07 06:21] LABS: ANION GAP 10 (6-22 (CALC)); BUN 27 mg/dL (9-20); BUN/CREATININE RATIO 28 (12-20 (CALC)); C-REACTIVE PROTEIN 0.9 mg/dL (0-0.9); CARBON DIOXIDE 30 mmol/l (22-30); CHLORIDE 103 mmol/l (95-108); GFR > 60 ML/MIN (>=60 (CALC)); GFR FOR AFR.AMER. > 60 ML/MIN (>=60 (CALC)); POTASSIUM 3.9 mmol/l (3.5-5.1); SODIUM 140 mmol/l (137-146)
[2021-10-07] MEDS ORDERED: LEVAQUIN750 M1 PO (11:20)
[2021-10-07] MEDS ORDERED: PREDNISONE10 MG PO (11:26)
[2021-10-07] MEDS ORDERED: PERCOCET 10/31 COMBO PO (11:27)
[2021-10-07 14:00] VITALS: BP 107/71
== END 2021-10-07 16:00 | disposition home or self-care (01) | DRG 872 ==
LOC: ED 18:07 → ED-I 19:45 → ED 22:23 → MS2 22:24
PROVIDERS: Family Medicine; Nurse Practitioner; ADMIT Internal Medicine; ATTEND Internal Medicine
PROC: 30233N1 Transfusion of Nonautologous Red Blood Cells into Peripheral Vein, Percutaneous Approach (ICD-10-PCS; principal; 2021-10-02)
PROC: 30233N1 Transfusion of Nonautologous Red Blood Cells into Peripheral Vein, Percutaneous Approach (ICD-10-PCS; 2021-10-02)
PROC: 30233N1 Transfusion of Nonautologous Red Blood Cells into Peripheral Vein, Percutaneous Approach (ICD-10-PCS; 2021-10-03)
DX: A41.9 Sepsis, unspecified organism (principal); L03.116 Cellulitis of left lower limb; L88 Pyoderma gangrenosum; L97.828 Non-pressure chronic ulcer of other part of left lower leg with other specified severity; L97.818 Non-pressure chronic ulcer of other part of right lower leg with other specified severity; L03.115 Cellulitis of right lower limb; D64.9 Anemia, unspecified; I10 Essential (primary) hypertension; F15.10 Other stimulant abuse, uncomplicated; F14.10 Cocaine abuse, uncomplicated; D72.829 Elevated white blood cell count, unspecified; T38.0X5A Adverse effect of glucocorticoids and synthetic analogues, initial encounter; F17.200 Nicotine dependence, unspecified, uncomplicated; B96.89 Other specified bacterial agents as the cause of diseases classified elsewhere; Z59.00 Homelessness unspecified; Z20.822 Contact with and (suspected) exposure to COVID-19
CPT/HCPCS: J0692; J1650; J3370; P9016; Q3014; S0164

== ENCOUNTER 2022-05-05 16:11 | Emergency (ER) | payer SELFPAY ==
[~2022-05-05] VITALS: Ht 188 cm; Wt 72.7 kg
[~2022-05-05 16:11] MED LIST changes: +LEVAQUIN750 M1 PO; +PERCOCET 10/31 COMBO PO; +PREDNISONE10 MG PO
[2022-05-05 17:27] LABS: MEAN CELL VOLUME 105.1 fL CALC (80.0-100.0); MEAN CORPUSCULAR HGB 31.2 pG CALC (26.0-32.0); MEAN CORPUSCULAR HGB CONC 29.7 g/dL CAL (32.0-36.0); PLATELET COUNT 170 thou/uL (130-400); RED BLOOD COUNT 1.57 mill/uL (4.70-6.10); RED CELL DISTRI WIDTH 17.7 % (11.5-15.5)
[2022-05-05 17:28] LABS: HEMATOCRIT 16.5 % (39.0-50.0); HEMOGLOBIN 4.9 g/dl (14.0-18.0); IMMATURE GRANULOCYTES 23.3 % (0.0-5.0)
[2022-05-05 17:29] LABS: MANUAL DIFFERENTIAL YES
[2022-05-05 17:38] LABS: ALBUMIN 3.2 g/dL (3.2-5.0); BILIRUBIN, TOTAL 0.1 mg/dL (0.0-1.4); BUN 15 mg/dL (9-20); BUN/CREATININE RATIO 16 (12-20 (CALC)); CHLORIDE 105 mmol/l (95-108); CREATININE 0.9 mg/dL (0.7-1.3); GFR FOR AFR.AMER. > 60 ML/MIN (>=60 (CALC)); GFR OTHER RACES > 60 ML/MIN (>=60 (CALC)); LIPASE 39 u/l (23-300); MAGNESIUM 1.9 mg/dL (1.6-2.3); POTASSIUM 4.1 mmol/l (3.5-5.1); SGOT/AST 31 u/l (17-59); SODIUM 135 mmol/l (137-146); TOTAL PROTEIN 6.7 g/dL (6.3-8.2)
[2022-05-05 17:44] LABS: ALKALINE PHOSPHATASE 160 u/l (38-126); ANION GAP 11 (6-22 (CALC)); CARBON DIOXIDE 23 mmol/l (22-30)
[2022-05-05 17:53] LABS: BAND 0 % (0-8)
[2022-05-05 17:54] LABS: PLATELET ESTIMATE NORMAL
[2022-05-05 17:58] LABS: HEMATOCRIT 15.4 % (39.0-50.0); HEMOGLOBIN 4.6 g/dl (14.0-18.0)
[2022-05-05 18:39] VITALS: BP 110/67
[2022-05-05 19:04] VITALS: BP 102/65
[2022-05-05 20:04] VITALS: BP 115/54
[2022-05-05 20:25] VITALS: BP 115/54
--- NOTE | 2022-05-07 08:19 | NUR ---
PRELIMINARY CULTURE RESULTS CALLED TO NORBERTO AGUILAR AT [facility]. RESULTS FAXED [phone]
== END 2022-05-05 20:25 | disposition short-term general hospital (02) | DRG 872 ==
LOC: ED 16:11
PROVIDERS: Family Medicine; Nurse Practitioner
DX: A41.9 Sepsis, unspecified organism (principal); I96 Gangrene, not elsewhere classified; B87.1 Wound myiasis; D64.9 Anemia, unspecified; S81.802A Unspecified open wound, left lower leg, initial encounter; S81.801A Unspecified open wound, right lower leg, initial encounter; I10 Essential (primary) hypertension; Z20.822 Contact with and (suspected) exposure to COVID-19; X58.XXXA Exposure to other specified factors, initial encounter
CPT/HCPCS: P9016

== ENCOUNTER 2022-05-24 14:05 | Emergency (ER) | payer SELFPAY ==
[~2022-05-24] VITALS: Ht 188 cm; Wt 77.0 kg
[2022-05-24] VITALS (10 sets, daily range): BP systolic 98–131; BP diastolic 56–79
[2022-05-24 15:23] LABS: ALKALINE PHOSPHATASE 158 u/l (38-126); BUN 19 mg/dL (9-20); BUN/CREATININE RATIO 20 (12-20 (CALC)); CHLORIDE 101 mmol/l (95-108); CREATININE 0.9 mg/dL (0.7-1.3); GFR FOR AFR.AMER. > 60 ML/MIN (>=60 (CALC)); GFR OTHER RACES > 60 ML/MIN (>=60 (CALC)); POTASSIUM 4.4 mmol/l (3.5-5.1); SGOT/AST 35 u/l (17-59); SODIUM 139 mmol/l (137-146); TOTAL PROTEIN 7.7 g/dL (6.3-8.2)
[2022-05-24 15:35] LABS: HEMOGLOBIN 8.1 g/dl (14.0-18.0); IMMATURE GRANULOCYTES 28.1 % (0.0-5.0); MANUAL DIFFERENTIAL YES; MEAN CELL VOLUME 95.9 fL CALC (80.0-100.0); MEAN CORPUSCULAR HGB 29.9 pG CALC (26.0-32.0); MEAN CORPUSCULAR HGB CONC 31.2 g/dL CAL (32.0-36.0); PLATELET COUNT 201 thou/uL (130-400); RED BLOOD COUNT 2.71 mill/uL (4.70-6.10); RED CELL DISTRI WIDTH 18.6 % (11.5-15.5)
[2022-05-24 15:36] LABS: BAND 55 % (0-8)
[2022-05-24 15:37] LABS: IMMATURE CELLS 12 %
[2022-05-24 15:45] LABS: ALBUMIN 4.1 g/dL (3.2-5.0); ANION GAP 13 (6-22 (CALC)); BILIRUBIN, TOTAL 0.2 mg/dL (0.0-1.4); CARBON DIOXIDE 29 mmol/l (22-30)
== END 2022-05-24 16:36 | disposition home or self-care (01) | DRG 816 ==
LOC: ED 14:05
PROVIDERS: Nurse Practitioner
DX: D72.829 Elevated white blood cell count, unspecified (principal); S81.802A Unspecified open wound, left lower leg, initial encounter; S81.801A Unspecified open wound, right lower leg, initial encounter

== ENCOUNTER 2022-09-08 18:53 | Inpatient (IN) | payer SELFPAY ==
[2022-09-08] VITALS (17 sets, daily range): BP systolic 99–148; BP diastolic 50–108
[~2022-09-08] VITALS: Ht 188 cm; Wt 74.8 kg
[2022-09-08 19:38] LABS: ALBUMIN 4.3 g/dL (3.2-5.0); ALKALINE PHOSPHATASE 164 u/l (38-126); ANION GAP 14 (6-22 (CALC)); BUN 26 mg/dL (9-20); BUN/CREATININE RATIO 21 (12-20 (CALC)); CARBON DIOXIDE 22 mmol/l (22-30); CHLORIDE 104 mmol/l (95-108); CREATININE 1.3 mg/dL (0.7-1.3); GFR FOR AFR.AMER. > 60 ML/MIN (>=60 (CALC)); GFR OTHER RACES 57 ML/MIN (>=60 (CALC)); POTASSIUM 3.7 mmol/l (3.5-5.1); SGOT/AST 32 u/l (17-59); SODIUM 136 mmol/l (137-146); TOTAL PROTEIN 7.7 g/dL (6.3-8.2)
[2022-09-08 19:40] LABS: IMMATURE GRANULOCYTES 25.9 % (0.0-5.0); MEAN CELL VOLUME 105.6 fL CALC (80.0-100.0); MEAN CORPUSCULAR HGB 32.4 pG CALC (26.0-32.0); MEAN CORPUSCULAR HGB CONC 30.7 g/dL CAL (32.0-36.0); PLATELET COUNT 143 thou/uL (130-400); RED BLOOD COUNT 1.79 mill/uL (4.70-6.10)
[2022-09-08 19:41] LABS: HEMATOCRIT 18.9 % (39.0-50.0); HEMOGLOBIN 5.8 g/dl (14.0-18.0); MANUAL DIFFERENTIAL YES
[2022-09-08 19:45] LABS: BAND 1 % (0-8); PLATELET ESTIMATE NORMAL
[2022-09-08 21:43] LABS: URINE BILIRUBIN - DIPSTICK NEGATIVE (NEGATIVE); URINE BLOOD DIPSTICK TRACE-INTACT (NEGATIVE); URINE COLOR YELLOW; URINE GLUCOSE - DIPSTICK NEGATIVE (NEGATIVE); URINE KETONE NEGATIVE (NEGATIVE); URINE LEUK ESTERASE NEGATIVE (NEGATIVE); URINE PH 5.5 (4.5-8.0); URINE PROTEIN - DIPSTICK TRACE mg/dL (NEG-TRACE); URINE SPECIFIC GRAVITY 1.015; URINE UROBILINOGEN - DIPSTICK 0.2 E.U./dL (0.2)
[2022-09-08 21:47] LABS: URINE NITRITE - DIPSTICK NEGATIVE (Negative)
[2022-09-09] VITALS (27 sets, daily range): BP systolic 77–122; BP diastolic 33–64
[2022-09-09 19:14] LABS: HEMOGLOBIN 6.1 g/dl (14.0-18.0); RED BLOOD COUNT 1.97 mill/uL (4.70-6.10)
[2022-09-09 19:15] LABS: HEMATOCRIT 19.9 % (39.0-50.0); IMMATURE GRANULOCYTES 28.2 % (0.0-5.0); MANUAL DIFFERENTIAL YES; MEAN CORPUSCULAR HGB CONC 30.7 g/dL CAL (32.0-36.0); PLATELET COUNT 105 thou/uL (130-400); RED CELL DISTRI WIDTH 19.5 % (11.5-15.5)
[2022-09-09 19:31] LABS: BAND 1 % (0-8); PLATELET ESTIMATE SLIGHT DECREASE
[2022-09-10] VITALS (10 sets, daily range): BP systolic 89–107; BP diastolic 35–51
[2022-09-10 06:09] LABS: ALKALINE PHOSPHATASE 116 u/l (38-126); ANION GAP 8 (6-22 (CALC)); BUN 19 mg/dL (9-20); BUN/CREATININE RATIO 16 (12-20 (CALC)); CARBON DIOXIDE 25 mmol/l (22-30); CHLORIDE 109 mmol/l (95-108); CREATININE 1.2 mg/dL (0.7-1.3); GFR FOR AFR.AMER. > 60 ML/MIN (>=60 (CALC)); GFR OTHER RACES > 60 ML/MIN (>=60 (CALC)); POTASSIUM 4.1 mmol/l (3.5-5.1); SGOT/AST 24 u/l (17-59); SODIUM 137 mmol/l (137-146)
[2022-09-10 06:25] LABS: ALBUMIN 2.9 g/dL (3.2-5.0); TOTAL PROTEIN 5.9 g/dL (6.3-8.2)
[2022-09-10 06:49] LABS: MEAN CELL VOLUME 101.6 fL CALC (80.0-100.0); MEAN CORPUSCULAR HGB 30.8 pG CALC (26.0-32.0); MEAN CORPUSCULAR HGB CONC 30.3 g/dL CAL (32.0-36.0); PLATELET COUNT 105 thou/uL (130-400); RED BLOOD COUNT 1.85 mill/uL (4.70-6.10); RED CELL DISTRI WIDTH 19.4 % (11.5-15.5)
[2022-09-10 07:31] LABS: HEMATOCRIT 18.8 % (39.0-50.0); HEMOGLOBIN 5.7 g/dl (14.0-18.0); IMMATURE GRANULOCYTES 26.3 % (0.0-5.0); MANUAL DIFFERENTIAL YES
[2022-09-10 07:38] LABS: BAND 9 % (0-8); NUCLEATED RED BLOOD CELL 1 /100WBC (0-1)
[2022-09-10 07:39] LABS: ANISOCYTOSIS FEW; HYPERSEGMENTED POLYS FEW; HYPOCHROMIA FEW; MICROCYTOSIS FEW; POIKILOCYTOSIS FEW; POLYCHROMASIA FEW; TARGET CELLS FEW
[2022-09-11] VITALS (12 sets, daily range): BP systolic 88–146; BP diastolic 39–85
[2022-09-11 08:10] LABS: HEMOGLOBIN 7.4 g/dl (14.0-18.0); MEAN CORPUSCULAR HGB 30.2 pG CALC (26.0-32.0); MEAN CORPUSCULAR HGB CONC 30.8 g/dL CAL (32.0-36.0); RED BLOOD COUNT 2.45 mill/uL (4.70-6.10)
[2022-09-11 08:17] LABS: IMMATURE GRANULOCYTES 29.6 % (0.0-5.0); MANUAL DIFFERENTIAL YES
[2022-09-11 08:18] LABS: BAND 3 % (0-8); PLATELET COUNT 86 thou/uL (130-400)
[2022-09-11 08:19] LABS: ALKALINE PHOSPHATASE 116 u/l (38-126); ANION GAP 5 (6-22 (CALC)); BUN 14 mg/dL (9-20); BUN/CREATININE RATIO 11 (12-20 (CALC)); CARBON DIOXIDE 26 mmol/l (22-30); CHLORIDE 110 mmol/l (95-108); CREATININE 1.2 mg/dL (0.7-1.3); GFR FOR AFR.AMER. > 60 ML/MIN (>=60 (CALC)); GFR OTHER RACES > 60 ML/MIN (>=60 (CALC)); PLATELET ESTIMATE SLIGHT DECREASE; POTASSIUM 3.7 mmol/l (3.5-5.1); SGOT/AST 23 u/l (17-59); SODIUM 138 mmol/l (137-146)
[2022-09-12 04:22] VITALS: BP 99/56
[2022-09-12 06:49] VITALS: BP 85/43
[2022-09-12 07:31] LABS: HEMOGLOBIN 8.1 g/dl (14.0-18.0); IMMATURE GRANULOCYTES 27.3 % (0.0-5.0); MEAN CELL VOLUME 98.9 fL CALC (80.0-100.0); MEAN CORPUSCULAR HGB 30.8 pG CALC (26.0-32.0); MEAN CORPUSCULAR HGB CONC 31.2 g/dL CAL (32.0-36.0); PLATELET COUNT 110 thou/uL (130-400); RED BLOOD COUNT 2.63 mill/uL (4.70-6.10); RED CELL DISTRI WIDTH 19.9 % (11.5-15.5)
[2022-09-12 07:32] LABS: MANUAL DIFFERENTIAL YES
[2022-09-12 07:44] LABS: ALBUMIN 3.2 g/dL (3.2-5.0); ALKALINE PHOSPHATASE 132 u/l (38-126); ANION GAP 6 (6-22 (CALC)); BUN 12 mg/dL (9-20); BUN/CREATININE RATIO 10 (12-20 (CALC)); CARBON DIOXIDE 28 mmol/l (22-30); CHLORIDE 110 mmol/l (95-108); CREATININE 1.2 mg/dL (0.7-1.3); GFR FOR AFR.AMER. > 60 ML/MIN (>=60 (CALC)); GFR OTHER RACES > 60 ML/MIN (>=60 (CALC)); POTASSIUM 4.2 mmol/l (3.5-5.1); SGOT/AST 31 u/l (17-59); SODIUM 140 mmol/l (137-146); TOTAL PROTEIN 6.6 g/dL (6.3-8.2)
[2022-09-12 07:55] LABS: BAND 28 % (0-8)
[2022-09-12 11:15] VITALS: BP 114/47
[2022-09-12 15:13] VITALS: BP 109/58
[2022-09-12 19:05] VITALS: BP 119/64
[2022-09-13 00:14] VITALS: BP 107/65
[2022-09-13 04:30] VITALS: BP 99/59
[2022-09-13 05:56] VITALS: BP 119/66
[2022-09-13 07:26] LABS: HEMATOCRIT 24.1 % (39.0-50.0); HEMOGLOBIN 7.3 g/dl (14.0-18.0); IMMATURE GRANULOCYTES 27.2 % (0.0-5.0); MANUAL DIFFERENTIAL YES; MEAN CELL VOLUME 98.8 fL CALC (80.0-100.0); MEAN CORPUSCULAR HGB 29.9 pG CALC (26.0-32.0); MEAN CORPUSCULAR HGB CONC 30.3 g/dL CAL (32.0-36.0); PLATELET COUNT 111 thou/uL (130-400); RED BLOOD COUNT 2.44 mill/uL (4.70-6.10); RED CELL DISTRI WIDTH 19.4 % (11.5-15.5)
[2022-09-13 07:43] LABS: ALBUMIN 3.3 g/dL (3.2-5.0); ALKALINE PHOSPHATASE 116 u/l (38-126); ANION GAP 7 (6-22 (CALC)); BUN 16 mg/dL (9-20); BUN/CREATININE RATIO 15 (12-20 (CALC)); CARBON DIOXIDE 27 mmol/l (22-30); CHLORIDE 107 mmol/l (95-108); CREATININE 1.1 mg/dL (0.7-1.3); GFR FOR AFR.AMER. > 60 ML/MIN (>=60 (CALC)); GFR OTHER RACES > 60 ML/MIN (>=60 (CALC)); POTASSIUM 3.8 mmol/l (3.5-5.1); SGOT/AST 25 u/l (17-59); SODIUM 137 mmol/l (137-146); TOTAL PROTEIN 6.3 g/dL (6.3-8.2)
[2022-09-13 08:06] LABS: PLATELET ESTIMATE SLIGHT DECREASE
[2022-09-13 08:07] LABS: ANISOCYTOSIS MODERATE
[2022-09-13 08:10] LABS: POIKILOCYTOSIS FEW; TEAR DROP CELLS FEW
[2022-09-13 08:15] LABS: BAND 21 % (0-8)
[2022-09-13 10:54] VITALS: BP 123/66
[2022-09-13 14:58] VITALS: BP 136/79
[2022-09-13 19:31] VITALS: BP 122/58
[2022-09-14 00:02] VITALS: BP 116/57
[2022-09-14 04:17] VITALS: BP 117/42
[2022-09-14 06:36] LABS: ALKALINE PHOSPHATASE 149 u/l (38-126); ANION GAP 10 (6-22 (CALC)); BUN 25 mg/dL (9-20); BUN/CREATININE RATIO 19 (12-20 (CALC)); CARBON DIOXIDE 30 mmol/l (22-30); CHLORIDE 106 mmol/l (95-108); CREATININE 1.3 mg/dL (0.7-1.3); GFR FOR AFR.AMER. > 60 ML/MIN (>=60 (CALC)); GFR OTHER RACES 57 ML/MIN (>=60 (CALC)); MAGNESIUM 2.2 mg/dL (1.6-2.3); POTASSIUM 3.8 mmol/l (3.5-5.1); SGOT/AST 36 u/l (17-59); SODIUM 141 mmol/l (137-146)
[2022-09-14 06:39] LABS: ALBUMIN 4.1 g/dL (3.2-5.0); BILIRUBIN, TOTAL 0.3 mg/dL (0.2-1.3); TOTAL PROTEIN 7.6 g/dL (6.3-8.2)
[2022-09-14 06:45] LABS: HEMATOCRIT 27.2 % (39.0-50.0); MEAN CELL VOLUME 100.7 fL CALC (80.0-100.0); MEAN CORPUSCULAR HGB 29.6 pG CALC (26.0-32.0); MEAN CORPUSCULAR HGB CONC 29.4 g/dL CAL (32.0-36.0); RED BLOOD COUNT 2.7 mill/uL (4.70-6.10)
[2022-09-14 06:57] VITALS: BP 114/62
[2022-09-14 11:17] VITALS: BP 130/61
[2022-09-14] MEDS ORDERED: CLOBETASOL0.053 EX (11:43)
[2022-09-14] MEDS ORDERED: PREDNISONE20 MG PO (11:43)
[2022-09-14] MEDS ORDERED: LORTAB5 PO (11:48)
[2022-09-14] MEDS ORDERED: LEVAQUIN750 M1 PO (11:48)
[2022-09-14 15:21] VITALS: BP 109/52
== END 2022-09-14 19:15 | disposition home or self-care (01) | DRG 603 ==
LOC: ED 18:53 → ED-I 22:27 → ED 22:51 → MS2 22:52
PROVIDERS: Emergency Medicine; Internal Medicine; ADMIT Internal Medicine; ATTEND Internal Medicine
PROC: 30233N1 Transfusion of Nonautologous Red Blood Cells into Peripheral Vein, Percutaneous Approach (ICD-10-PCS; principal; 2022-09-09)
PROC: 30233N1 Transfusion of Nonautologous Red Blood Cells into Peripheral Vein, Percutaneous Approach (ICD-10-PCS; 2022-09-09)
PROC: 30233N1 Transfusion of Nonautologous Red Blood Cells into Peripheral Vein, Percutaneous Approach (ICD-10-PCS; 2022-09-10)
PROC: 30233N1 Transfusion of Nonautologous Red Blood Cells into Peripheral Vein, Percutaneous Approach (ICD-10-PCS; 2022-09-11)
DX: L88 Pyoderma gangrenosum (principal); L97.822 Non-pressure chronic ulcer of other part of left lower leg with fat layer exposed; L97.812 Non-pressure chronic ulcer of other part of right lower leg with fat layer exposed; D47.1 Chronic myeloproliferative disease; L03.116 Cellulitis of left lower limb; L03.115 Cellulitis of right lower limb; D64.9 Anemia, unspecified; I10 Essential (primary) hypertension; D72.829 Elevated white blood cell count, unspecified; T38.0X5A Adverse effect of glucocorticoids and synthetic analogues, initial encounter; R19.5 Other fecal abnormalities; M19.90 Unspecified osteoarthritis, unspecified site; B96.4 Proteus (mirabilis) (morganii) as the cause of diseases classified elsewhere; Z53.29 Procedure and treatment not carried out because of patient's decision for other reasons; Z86.14 Personal history of Methicillin resistant Staphylococcus aureus infection; Z87.891 Personal history of nicotine dependence; Z59.00 Homelessness unspecified; Z85.828 Personal history of other malignant neoplasm of skin; Z91.199 Patient's noncompliance with other medical treatment and regimen due to unspecified reason; Z20.822 Contact with and (suspected) exposure to COVID-19
CPT/HCPCS: J0692; P9016; S0164

== ENCOUNTER 2022-09-23 11:19 | Emergency (ER) | payer SELFPAY ==
[~2022-09-23] VITALS: Ht 188 cm; Wt 86.2 kg
[~2022-09-23 11:19] MED LIST changes: +CLOBETASOL0.053 EX; +LORTAB5 PO; +PREDNISONE20 MG PO
[2022-09-23] MEDS ORDERED: LEVAQUIN750 M1 PO (11:38)
[2022-09-23] MEDS ORDERED: HYDROCO/APAP1 T10 PO ×2 (11:38→11:41)
[2022-09-23 11:54] VITALS: BP 132/74
[2022-09-23 12:00] VITALS: BP 126/81
[2022-09-23 12:06] VITALS: BP 126/81
== END 2022-09-23 12:45 | disposition home or self-care (01) | DRG 603 ==
LOC: ED 11:19
DX: L88 Pyoderma gangrenosum (principal)

== ENCOUNTER 2022-09-26 09:40 | Inpatient (IN) | payer SELFPAY ==
[2022-09-26] VITALS (7 sets, daily range): BP systolic 107–127; BP diastolic 55–77
[~2022-09-26] VITALS: Ht 188 cm; Wt 74.0 kg
[~2022-09-26 09:40] MED LIST changes: +HYDROCO/APAP1 T10 PO
--- NOTE | 2022-09-26 09:45 | NUR ---
PT ARRIVE TO ER VIA POV. PT WHEELED TO RM6 AND ASSISTED TO STRETCHER. PROVIDER NOTIFIED.
[2022-09-26 10:45] LABS: HEMATOCRIT 22.5 % (39.0-50.0); IMMATURE GRANULOCYTES 28.7 % (0.0-5.0); MEAN CELL VOLUME 102.3 fL CALC (80.0-100.0); MEAN CORPUSCULAR HGB 30.9 pG CALC (26.0-32.0); MEAN CORPUSCULAR HGB CONC 30.2 g/dL CAL (32.0-36.0); PLATELET COUNT 103 thou/uL (130-400); RED CELL DISTRI WIDTH 18.4 % (11.5-15.5)
[2022-09-26 10:46] LABS: HEMOGLOBIN 6.8 g/dl (14.0-18.0); MANUAL DIFFERENTIAL YES
[2022-09-26 10:57] LABS: ALBUMIN 4.5 g/dL (3.2-5.0); ALKALINE PHOSPHATASE 153 u/l (38-126); BUN 38 mg/dL (9-20); BUN/CREATININE RATIO 28 (12-20 (CALC)); CARBON DIOXIDE 27 mmol/l (22-30); CHLORIDE 106 mmol/l (95-108); CREATININE 1.4 mg/dL (0.7-1.3); GFR FOR AFR.AMER. > 60 ML/MIN (>=60 (CALC)); GFR OTHER RACES 53 ML/MIN (>=60 (CALC)); SGOT/AST 33 u/l (17-59); SODIUM 139 mmol/l (137-146); TOTAL PROTEIN 7.6 g/dL (6.3-8.2)
[2022-09-26 10:58] LABS: ANION GAP 11 (6-22 (CALC)); BILIRUBIN, TOTAL 0.1 mg/dL (0.2-1.3)
[2022-09-26 11:01] LABS: BAND 28 % (0-8)
--- NOTE | 2022-09-26 12:01 | NUR ---
PATIENT ALERT AND ORIENTED X 3. NO S/S OF RESPIRATORY DISTRESS. RESPIRATIONS EVEN AND NON LABORED. DENIES ANY C/OPAIN AT THIS TIME. PATIENT STATES THAT MORPHINE HAS HELPED WITH HIS PAIN AND HE IS FEELING MUCH BETTER. COMPLETED EKG AND IT IS NORMAL SINUS. PLAN OF CARE REVIEWED WITH PATIENT BY MD AND PATIENT IS IN COMPLETE AGREEMENT WITH PLAN OF CARE AND VOICES NO CONCERNS AT THIS TIME.
--- NOTE | 2022-09-26 12:20 | NUR ---
RECEIVE ADMISSION FROM ER. REPORT FROM [facility] ER NURSE. PATIWNT ALERT AND ORIENTED X3. NO REFER PAIN OR DISCOMFORT AT THIS TIME. PATIENT IS EDUCATED ABOUD ADMISSION, MEDICATIONS AND NURSING PLAN FOR TODAY. PATIENT REFER UNDERSTAND. SAFETY AND FALL PRECAUTIONS IN PLACE. CALL LIGHT WITHIN IN REACH.
--- NOTE | 2022-09-26 12:31 | NUR ---
PATIENT AND ALL BELONGINGS ALONG WITH PAPERWORK WAS TAKEN VIASTRETCHER BY THIS NURSE TO ROOM 265. REPORT GIVEN TO NURSE PATSY AND SHE VERBALIZED UNDERSTANDING OF REPORT AND VOICED NO CONCERNS AND ACCEPTED CARE OF PATIENT. PATIENT IS ALERT AND ORIENTED X 3. NO S/S OF RESPIRATORY DISTRESS. RESPIRATIONS EVEN AND NON LABORED. DENIES NAY C/O PAIN.
--- NOTE | 2022-09-26 12:32 | NUR ---
PT VITALS UPON ADMISSION: WT: 73.8 KG (STANDING SCALE) BP:119/70 P:79 O2:97 TEMP:98.5
--- NOTE | 2022-09-26 16:00 | NUR ---
REPORT RECIEVED FROM MS RN. PT RESTING IN BED COMPLAINING OF 8/10 LEG PAIN. STATES MEDICATION ISNT WORKING. MD NOTIFIED/AWARE. AWAITING ORDERS. RELAXATION TECHNIQUES PROVIDED. PT DEMONSTRATED UNDERSTANDING. FALL/SAFTEY PRECAUTION IN PLACE, CALL LIGHT WITHIN REACH
--- NOTE | 2022-09-26 20:00 | NUR ---
PT SITTING ON BED HIGH FOWLERS; A&O X3. VS AND ASSESSMENT COMPLETED. TELEMETRY IN PLACE. EVEN AND UNLABORED RESPIRATIONS ON PETR. WOUNDS TO EAGLE LOWER EXTREMITIES NOTED. SAFETY PRECAUTIONS IN PLACE WITH CALL LIGHT IN REACH.
[2022-09-27] VITALS (15 sets, daily range): BP systolic 99–136; BP diastolic 47–78
--- NOTE | 2022-09-27 00:24 | NUR ---
PT C/O PAIN ON LOWER EXTREMITIES, LEVEL 10/10; ADMINISTERED PAIN MED PER EMAR. SAFETY PRECAUTIONS IN PLACE WITH CALL LIGHT IN REACH.
--- NOTE | 2022-09-27 03:21 | NUR ---
TRANFUSING RBC AT THIS TIME. VS STABLE. NO SIGNS OF REACTION. PT TOLERATING WELL. SAFETY PRECAUTIONS IN PLACE WITH CALL LIGHT IN REACH.
--- NOTE | 2022-09-27 04:30 | NUR ---
LAB UNABLE TO DRAW PT AT THIS TIME SINCE BLOOD TRANFUSION IS NOT FINISHED. DIPLOMATIC OFFICER WILL COME BACK LATER.
--- NOTE | 2022-09-27 04:46 | NUR ---
PT LILLY PAIN LOWER EXTREMITIES, LEVEL 10/10; ADMINISTERED PAIN MED PER EMAR. TRANFUSING RBC AT THIS TIME, VS STABLE. PT TOLERATING WELL. SAFETY PRECAUTIONS IN PLACE WITH CALL LIGHT IN REACH.
--- NOTE | 2022-09-27 05:29 | NUR ---
RBC TRANFUSION COMPLETED @ 0511; VS STABLE, PT TOLERATED WELL. PT C/O PAIN TO EAGLE LOWER EXTREMITIES, LEVEL 9/10; ADMINISTERED PAIN MED. HANGING SCHEDULED ABX AT THIS TIME. SAFETY PRECAUTIONS IN PLACE WITH CALL LIGHT IN REACH.
--- NOTE | 2022-09-27 08:00 | NUR ---
Patient alert and oriented x3. Patient refer pain at the time of this note.Patient is educated aboud medications and nursing plan for today. Pt refer understand . Safety and fall precautions in place. Call light within in reach.
--- NOTE | 2022-09-27 08:00 | NUR ---
RECEIVE REPORT FROM KRISTAN SOLIS.
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
[2022-09-27 09:45] LABS: HEMATOCRIT 21.8 % (39.0-50.0); HEMOGLOBIN 6.8 g/dl (14.0-18.0); IMMATURE GRANULOCYTES 29.1 % (0.0-5.0); MEAN CELL VOLUME 99.1 fL CALC (80.0-100.0); MEAN CORPUSCULAR HGB 30.9 pG CALC (26.0-32.0); MEAN CORPUSCULAR HGB CONC 31.2 g/dL CAL (32.0-36.0); PLATELET COUNT 90 thou/uL (130-400); RED CELL DISTRI WIDTH 19.3 % (11.5-15.5)
[2022-09-27 09:46] LABS: MANUAL DIFFERENTIAL YES
[2022-09-27 09:59] LABS: ALBUMIN 3.8 g/dL (3.2-5.0); ALKALINE PHOSPHATASE 130 u/l (38-126); ANION GAP 10 (6-22 (CALC)); BILIRUBIN, TOTAL 0.3 mg/dL (0.2-1.3); BUN 33 mg/dL (9-20); BUN/CREATININE RATIO 29 (12-20 (CALC)); C-REACTIVE PROTEIN 2.5 mg/dL (0-0.9); CARBON DIOXIDE 25 mmol/l (22-30); CHLORIDE 104 mmol/l (95-108); CREATININE 1.2 mg/dL (0.7-1.3); GFR FOR AFR.AMER. > 60 ML/MIN (>=60 (CALC)); GFR OTHER RACES > 60 ML/MIN (>=60 (CALC)); POTASSIUM 4.2 mmol/l (3.5-5.1); SGOT/AST 26 u/l (17-59); SODIUM 135 mmol/l (137-146); TOTAL PROTEIN 6.9 g/dL (6.3-8.2)
[2022-09-27 11:14] LABS: BAND 19 % (0-8); POIKILOCYTOSIS FEW
[2022-09-27 11:15] LABS: ANISOCYTOSIS FEW; PLATELET ESTIMATE SLIGHT DECREASE; SPHEROCYTE FEW; TEAR DROP CELLS FEW
--- NOTE | 2022-09-27 12:39 | NUR ---
PATIENT STABLE AT THIS TIME. RESTING IN BED. SAFETY AND FALL PRECAUTIONS IN PLACE. CALL LIGHT WITHIN IN REACH.
--- NOTE | 2022-09-27 16:33 | NUR ---
PATIENT TOLERATED WELL THE BLOOD TRANSFUSE
--- NOTE | 2022-09-27 19:15 | NUR ---
RECEIVED REPORT FROM JEFF MCWILLIAMS. PT SITTING ON BED HIGH FOWLERS; A&OX3. EVEN AND UNLABORED RESPIRATIONS. TELEMETRY IN PLACE. IV SITE HEALTHY AND PATENT, INFUSING PRBC'S AT THIS TIME @125 MMLS/HR. NO SIGNS OF REACTION NOTED, PT TOLERATING WELL, VS STABLE. DRESSING TO EAGLE LOWER EXTREMITIES; CDI. ACTIVE BOWEL SOUNDS X4 QUADRANTS. SAFETY PRECAUTIONS IN PLACE WITH CALL LIGHT IN REACH.
--- NOTE | 2022-09-27 20:12 | NUR ---
TRANSFUSION OF RBC COMPLETED @ 2008. VS STABLE, NO SIGNS OF REACTION NOTED. PT TOLERATED WELL. SAFETY PRECAUTIONS IN PLACE WITH CALL LIGHT IN REACH.
--- NOTE | 2022-09-27 21:37 | NUR ---
PT C/O PAIN TO LOWER EXTREMITIES, LEVEL 10/10; ADMINISTERED PAIN MED PER EMAR. SAFETY PRECAUTIONS IN PLACE WITH CALL LIGHT IN REACH.
[2022-09-28] VITALS: BP 126/64
--- NOTE | 2022-09-28 | NUR ---
PT RESTING ON BED WITH EYES CLOSED. NO DISTRESS OR PAIN NOTED. NO VOICED NEEDS AT THIS TIME. SAFETY PRECAUTIONS IN PLACE WITH CALL LIGHT IN REACH.
--- NOTE | 2022-09-28 01:44 | NUR ---
PT C/O PAIN TO EAGLE LOWER EXTREMITIES, LEVEL 9/10; ADMINISTERED PAIN MED PER EMAR. SAFETY PRECAUTIONS IN PLACE WITH CALL LIGHT IN REACH.
[2022-09-28 04:27] VITALS: BP 108/61
--- NOTE | 2022-09-28 04:27 | NUR ---
PT RESTING ON BED, LOW FOWLERS POSITION. VS COMPLETED. NO SIGNS OF DISTRESS OR PAIN NOTED. IV SITE HEALTHY AND PATENT. DRESSING TO EAGLE LOWER EXTREMITIES; CDI. SAFETY PRECAUTIONS IN PLACE WITH CALL LIGHT IN REACH.
[2022-09-28 04:51] LABS: ALBUMIN 4.2 g/dL (3.2-5.0); ALKALINE PHOSPHATASE 142 u/l (38-126); ANION GAP 9 (6-22 (CALC)); BILIRUBIN, TOTAL 0.2 mg/dL (0.2-1.3); BUN 35 mg/dL (9-20); BUN/CREATININE RATIO 30 (12-20 (CALC)); CARBON DIOXIDE 30 mmol/l (22-30); CHLORIDE 103 mmol/l (95-108); CREATININE 1.2 mg/dL (0.7-1.3); GFR FOR AFR.AMER. > 60 ML/MIN (>=60 (CALC)); GFR OTHER RACES > 60 ML/MIN (>=60 (CALC)); POTASSIUM 3.8 mmol/l (3.5-5.1); SGOT/AST 30 u/l (17-59); SODIUM 138 mmol/l (137-146); TOTAL PROTEIN 7.7 g/dL (6.3-8.2)
[2022-09-28 04:56] LABS: HEMATOCRIT 28.3 % (39.0-50.0); HEMOGLOBIN 8.9 g/dl (14.0-18.0); IMMATURE GRANULOCYTES 28.4 % (0.0-5.0); MANUAL DIFFERENTIAL YES; MEAN CELL VOLUME 96.9 fL CALC (80.0-100.0); MEAN CORPUSCULAR HGB 30.5 pG CALC (26.0-32.0); MEAN CORPUSCULAR HGB CONC 31.4 g/dL CAL (32.0-36.0); PLATELET COUNT 99 thou/uL (130-400); RED BLOOD COUNT 2.92 mill/uL (4.70-6.10); RED CELL DISTRI WIDTH 19.1 % (11.5-15.5)
[2022-09-28 05:15] LABS: ANISOCYTOSIS FEW; BAND 6 % (0-8); POIKILOCYTOSIS FEW; STOMATOCYTE FEW; TEAR DROP CELLS FEW
[2022-09-28 06:19] VITALS: BP 105/59
--- NOTE | 2022-09-28 07:36 | NUR ---
PT RESTING IN HIGH FOWLERS POSITION. PT A/OX3 ASSESSMENT AND VS COMPLETED. HEART RHYTHM NORM RESPIRATIONS ON ROOM AIR .PT C/O PAIN MEDICATED PER EMAR. DRESSINGS TO WOUNDS NOTED CDI ALL SAFETY PRECAUTIONS IN PLACE WITHC ALL LIGHT IN REACH.
--- NOTE | 2022-09-28 08:45 | NUR ---
BOOKED AN INFECTIOUS DISEASE CONSULT WITH DR COX [facility] AT 0845 HRS.
[2022-09-28 10:19] VITALS: BP 123/69
--- NOTE | 2022-09-28 12:03 | NUR ---
PT WOUND DRESSING COMPLETED. PT HAS NOT CALLED FOR PAIN MED AT THE MOMENT. PT STATED BM TODAY PRIOT STOOL SOFTER AND MIRALAX. PT STATED OKAY TO BE GIVEN.
--- NOTE | 2022-09-28 13:01 | NUR ---
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 He has a history of chronic neutrophilic leukemia. All medications in patient's chart were reviewed. O: VS: BP 123/69, P 90, RR 18, T 98 W 74 kg, HT 74 in, Scr=1.2, CrCl= 72.8 ml/min A: Wound culture is growing Pseudomonas which is sensitive to cefepime and MRSA which is sensitive to vancomycin. P: Patient is on cefepime 2 g IV q8h. Vancomycin ordered for pharmacy to dose. Start Vancomycin 1 g IV Q12H. Vancomycin trough is drawn before the 4th dose on 09/29/22 @2230. Vancomycin goal trough is between 10-15 mcg/ml. Pharmacy will follow and or advise on antibiotics use as needed.
[2022-09-28 14:10] VITALS: BP 109/61
--- NOTE | 2022-09-28 14:19 | NUR ---
COMPLETED AN INFECTIOUS DISEASE CONSULT WITH DR COX [facility] AT 1419 HRS.
--- NOTE | 2022-09-28 19:31 | NUR ---
RECEIVED REPORT FROM JEFF SELF. PT RESTING ON BED HIGH FOWLERS; A&O X3. EVEN AND UNLABOREDRESPIRATIONS; CLEAR LUNG SOUNDS UPON AUSCULTATION. TELEMETRY IN PLACE. IV SITE HEALTHY AND PATENT. ACTIVE BOWEL SOUNDS X4 QUADRANTS. PT C/O PAIN TO RT LEG AND LEFT FLANK, LEVEL 10/10; ADMINISTERED PAIN MED PER EMAR. DRESSING TO EAGLE LOWER EXTREMITIES: CDI. SAFETY PRECAUTIONS IN PLACE WITH CALL LIGHT IN REACH.
[2022-09-28 19:32] VITALS: BP 121/74
--- NOTE | 2022-09-28 23:50 | NUR ---
PT SITTING ON BED WATCHING TV. IV SITE HEALTHY AND PATENT, INFUSING SCHEDULED ABX A THIS TIME. PT C/O PAIN TO RT LEG AND LEFT FLANK, LEVEL 9/10; ADMINISTERED PAIN MEDICATION PER EMAR. SAFETY PRECAUTIONS IN PLACE WITH CALL LIGHT IN REACH.
[2022-09-29 00:13] VITALS: BP 105/64
--- NOTE | 2022-09-29 01:57 | NUR ---
PT C/O PAIN TO RT LEG AND LEFT FLANK, LEVEL 7/10; ADMINISTERED PAIN MED PER EMAR. SAFETY PRECAUTIONS IN PLACE WITH CALL LIGHT IN REACH.
--- NOTE | 2022-09-29 03:50 | NUR ---
PT RESTING ON BED WATCHING TV. NO DISTRESS OR PAIN NOTED. IV SITE HEALTHY AND PATENT. DRESSSING TO EAGLE LOWER EXTREMITIES;CDI. SAFETY PRECAUTIONS IN PLACE WITH CALL LIGHT IN REACH.
[2022-09-29 04:33] VITALS: BP 105/41
--- NOTE | 2022-09-29 05:03 | NUR ---
PT C/O PAIN TO RT LEG AND LEFT FLANK, LEVEL 7/10; ADMINISTERED PAIN MED PER EMAR. HANGING SCHEDULED ABX AT THIS TIME. SAFETY PRECAUTIONS IN PLACE WITH CALL LIGHT IN REACH.
[2022-09-29 05:39] LABS: ALKALINE PHOSPHATASE 151 u/l (38-126); BUN 44 mg/dL (9-20); BUN/CREATININE RATIO 37 (12-20 (CALC)); CARBON DIOXIDE 27 mmol/l (22-30); CHLORIDE 105 mmol/l (95-108); CREATININE 1.2 mg/dL (0.7-1.3); GFR FOR AFR.AMER. > 60 ML/MIN (>=60 (CALC)); GFR OTHER RACES > 60 ML/MIN (>=60 (CALC)); SGOT/AST 25 u/l (17-59); SODIUM 137 mmol/l (137-146); TOTAL PROTEIN 7.2 g/dL (6.3-8.2)
[2022-09-29 05:45] LABS: ANION GAP 10 (6-22 (CALC)); POTASSIUM 4.7 mmol/l (3.5-5.1)
[2022-09-29 06:05] LABS: HEMATOCRIT 28.9 % (39.0-50.0); IMMATURE GRANULOCYTES 27.6 % (0.0-5.0); MANUAL DIFFERENTIAL YES; MEAN CELL VOLUME 97.6 fL CALC (80.0-100.0); MEAN CORPUSCULAR HGB 30.4 pG CALC (26.0-32.0); MEAN CORPUSCULAR HGB CONC 31.1 g/dL CAL (32.0-36.0); PLATELET COUNT 98 thou/uL (130-400); RED BLOOD COUNT 2.96 mill/uL (4.70-6.10)
--- NOTE | 2022-09-29 06:10 | NUR ---
RECEIVED A CRITICAL WBC FROM [facility], PATIENT NURSE MADE AWARE.
[2022-09-29 06:23] LABS: BAND 10 % (0-8); POIKILOCYTOSIS FEW
[2022-09-29 06:24] LABS: ANISOCYTOSIS FEW; SPHEROCYTE FEW; STOMATOCYTE FEW
[2022-09-29 06:50] VITALS: BP 103/64
--- NOTE | 2022-09-29 07:25 | NUR ---
PT RESTING IN HIGH FOWLERS POSITION.A/OX3 ASSESSMENT AND VS COMPLETED. HEART RYTHM ON TELE. RESPIRATIONS ON ROOM AIR. IV SITE NOTED TO RAC S.L PT C/O PAIN MEDICATED PER EMAR. DRESSINGS TO BLL CDI. TO BE CHANGED. PER DAILY DRESSINGS. PT DENIES ADDITIONAL NEEDS AT THE TIME ALL SAFETY PRECAUTIONS IN PLACE CALL LIGHT INREACH.
[2022-09-29 10:38] VITALS: BP 107/60
[2022-09-29] MEDS ORDERED: PREDNISONE20 MG PO (11:48)
[2022-09-29] MEDS ORDERED: PROTONIX40 M2 PO (11:48)
[2022-09-29] MEDS ORDERED: HYDROCO/APAP1 T10 PO (11:50)
[2022-09-29] MEDS ORDERED: VIBRAMYCIN100 M2 PO (11:51)
--- NOTE | 2022-09-29 11:59 | NUR ---
PT TO BE DC TODAY. DRESSINGS COMPLETED ON PT BLL.
[2022-09-29 14:08] VITALS: BP 100/56
--- NOTE | 2022-09-29 15:19 | NUR ---
Discharge instructions given. Patient verbalizes understanding of same. Discharged in stable condition via Wheelchair to Home with staff. All belongings sent with pt. IV REMOVED TELE REMOVED.
== END 2022-09-29 15:09 | disposition home or self-care (01) | DRG 603 ==
LOC: ED 09:40 → MS2 11:40
PROVIDERS: Emergency Medicine; Nurse Practitioner Family; ADMIT Internal Medicine; ATTEND Internal Medicine
PROC: 30233N1 Transfusion of Nonautologous Red Blood Cells into Peripheral Vein, Percutaneous Approach (ICD-10-PCS; principal; 2022-09-27)
PROC: 30233N1 Transfusion of Nonautologous Red Blood Cells into Peripheral Vein, Percutaneous Approach (ICD-10-PCS; 2022-09-27)
PROC: 30233N1 Transfusion of Nonautologous Red Blood Cells into Peripheral Vein, Percutaneous Approach (ICD-10-PCS; 2022-09-27)
DX: L88 Pyoderma gangrenosum (principal); D47.1 Chronic myeloproliferative disease; L97.929 Non-pressure chronic ulcer of unspecified part of left lower leg with unspecified severity; L97.919 Non-pressure chronic ulcer of unspecified part of right lower leg with unspecified severity; D64.9 Anemia, unspecified; L08.9 Local infection of the skin and subcutaneous tissue, unspecified; I10 Essential (primary) hypertension; B95.62 Methicillin resistant Staphylococcus aureus infection as the cause of diseases classified elsewhere; Z59.00 Homelessness unspecified; Z87.891 Personal history of nicotine dependence; Z86.14 Personal history of Methicillin resistant Staphylococcus aureus infection; Z85.828 Personal history of other malignant neoplasm of skin; Z22.39 Carrier of other specified bacterial diseases
CPT/HCPCS: J0692; P9016; S0164

== ENCOUNTER 2023-08-11 10:53 | Inpatient (IN) | payer OTHER ==
[2023-08-11] VITALS (11 sets, daily range): BP systolic 106–147; BP diastolic 54–126
[~2023-08-11] VITALS: Ht 188 cm; Wt 65.4 kg
[~2023-08-11 10:53] MED LIST changes: +MINOCYCLINE100 MG PO; +PROTONIX40 M2 PO; +TRIAMCINOLON0.11 EX; +VIBRAMYCIN100 M2 PO
[2023-08-11 12:01] LABS: ANION GAP 12 (6-22 (CALC)); BUN 29 mg/dL (9-20); BUN/CREATININE RATIO 26 (12-20 (CALC)); CARBON DIOXIDE 26 mmol/l (22-30); CHLORIDE 105 mmol/l (95-108); CREATININE 1.1 mg/dL (0.7-1.3); GFR FOR AFR.AMER. > 60 ML/MIN (>=60 (CALC)); GFR OTHER RACES > 60 ML/MIN (>=60 (CALC)); POTASSIUM 3.8 mmol/l (3.5-5.1); SGOT/AST 31 u/l (17-59); SODIUM 140 mmol/l (137-146)
[2023-08-11 12:16] LABS: ALBUMIN 3.8 g/dL (3.2-5.0); ALKALINE PHOSPHATASE 141 u/l (38-126); BILIRUBIN, TOTAL 0.3 mg/dL (0.2-1.3); TOTAL PROTEIN 7.3 g/dL (6.3-8.2)
[2023-08-11 12:47] LABS: MEAN CELL VOLUME 105.7 fL CALC (80.0-100.0); MEAN CORPUSCULAR HGB 34.5 pG CALC (26.0-32.0); MEAN CORPUSCULAR HGB CONC 32.6 g/dL CAL (32.0-36.0); PLATELET COUNT 93 thou/uL (130-400); RED BLOOD COUNT 1.74 mill/uL (4.70-6.10); RED CELL DISTRI WIDTH 17.9 % (11.5-15.5)
[2023-08-11 12:48] LABS: HEMATOCRIT 18.4 % (39.0-50.0); IMMATURE GRANULOCYTES 28.3 % (0.0-5.0); MANUAL DIFFERENTIAL YES
[2023-08-11 12:50] LABS: BAND 25 % (0-8)
[2023-08-12] VITALS (14 sets, daily range): BP systolic 95–159; BP diastolic 51–93
[2023-08-12 06:51] LABS: ALBUMIN 3.4 g/dL (3.2-5.0); ALKALINE PHOSPHATASE 112 u/l (38-126); ANION GAP 11 (6-22 (CALC)); BILIRUBIN, TOTAL 0.4 mg/dL (0.2-1.3); BUN 28 mg/dL (9-20); BUN/CREATININE RATIO 24 (12-20 (CALC)); CARBON DIOXIDE 24 mmol/l (22-30); CHLORIDE 106 mmol/l (95-108); CREATININE 1.2 mg/dL (0.7-1.3); GFR FOR AFR.AMER. > 60 ML/MIN (>=60 (CALC)); GFR OTHER RACES > 60 ML/MIN (>=60 (CALC)); MAGNESIUM 1.9 mg/dL (1.6-2.3); POTASSIUM 4.2 mmol/l (3.5-5.1); SGOT/AST 31 u/l (17-59); SODIUM 137 mmol/l (137-146); TOTAL PROTEIN 6.7 g/dL (6.3-8.2)
[2023-08-12 06:54] LABS: HEMATOCRIT 22.8 % (39.0-50.0); HEMOGLOBIN 7.4 g/dl (14.0-18.0); MEAN CELL VOLUME 99.6 fL CALC (80.0-100.0); MEAN CORPUSCULAR HGB 32.3 pG CALC (26.0-32.0); MEAN CORPUSCULAR HGB CONC 32.5 g/dL CAL (32.0-36.0); PLATELET COUNT 80 thou/uL (130-400); RED BLOOD COUNT 2.29 mill/uL (4.70-6.10); RED CELL DISTRI WIDTH 18.3 % (11.5-15.5)
[2023-08-12 06:55] LABS: IMMATURE GRANULOCYTES 27.4 % (0.0-5.0); MANUAL DIFFERENTIAL YES
[2023-08-12 07:16] LABS: BAND 7 % (0-8); IMMATURE CELLS 2 %
[2023-08-12 12:34] LABS: URINE BILIRUBIN - DIPSTICK Negative (NEGATIVE); URINE BLOOD DIPSTICK Small (NEGATIVE); URINE COLOR Yellow; URINE GLUCOSE - DIPSTICK Negative (NEGATIVE); URINE KETONE Negative (NEGATIVE); URINE LEUK ESTERASE Negative (NEGATIVE); URINE NITRITE - DIPSTICK Negative (Negative); URINE PH 6.5 (4.5-8.0); URINE PROTEIN - DIPSTICK 30 mg/dL (NEG-TRACE); URINE UROBILINOGEN - DIPSTICK 0.2 E.U./dL (0.2)
[2023-08-12 12:35] LABS: URINE EPITHELIAL CELLS FEW EPI/hpf (0-FEW); URINE MUCUS MODERATE hpf (NONE-FEW)
[2023-08-13] VITALS (7 sets, daily range): BP systolic 90–113; BP diastolic 46–67
[2023-08-13 07:12] LABS: HEMATOCRIT 22.9 % (39.0-50.0); HEMOGLOBIN 7.3 g/dl (14.0-18.0); IMMATURE GRANULOCYTES 27.6 % (0.0-5.0); MANUAL DIFFERENTIAL YES; MEAN CELL VOLUME 100.4 fL CALC (80.0-100.0); MEAN CORPUSCULAR HGB CONC 31.9 g/dL CAL (32.0-36.0); PLATELET COUNT 70 thou/uL (130-400); RED BLOOD COUNT 2.28 mill/uL (4.70-6.10); RED CELL DISTRI WIDTH 18.9 % (11.5-15.5)
[2023-08-13 07:15] LABS: ALBUMIN 3.2 g/dL (3.2-5.0); ALKALINE PHOSPHATASE 114 u/l (38-126); ANION GAP 10 (6-22 (CALC)); BUN 20 mg/dL (9-20); BUN/CREATININE RATIO 16 (12-20 (CALC)); CARBON DIOXIDE 25 mmol/l (22-30); CHLORIDE 107 mmol/l (95-108); CREATININE 1.3 mg/dL (0.7-1.3); GFR FOR AFR.AMER. > 60 ML/MIN (>=60 (CALC)); GFR OTHER RACES 57 ML/MIN (>=60 (CALC)); MAGNESIUM 1.8 mg/dL (1.6-2.3); POTASSIUM 3.7 mmol/l (3.5-5.1); SGOT/AST 28 u/l (17-59); SODIUM 138 mmol/l (137-146); TOTAL PROTEIN 6.5 g/dL (6.3-8.2)
[2023-08-13 07:19] LABS: BILIRUBIN, TOTAL 0.2 mg/dL (0.2-1.3)
[2023-08-13 08:00] LABS: BAND 0 % (0-8)
[2023-08-14 04:00] VITALS: BP 117/68
[2023-08-14 07:25] VITALS: BP 111/63
[2023-08-14 07:50] LABS: HEMATOCRIT 22.9 % (39.0-50.0); HEMOGLOBIN 7.3 g/dl (14.0-18.0); IMMATURE GRANULOCYTES 24.5 % (0.0-5.0); MEAN CELL VOLUME 101.3 fL CALC (80.0-100.0); MEAN CORPUSCULAR HGB 32.3 pG CALC (26.0-32.0); MEAN CORPUSCULAR HGB CONC 31.9 g/dL CAL (32.0-36.0); PLATELET COUNT 84 thou/uL (130-400); RED BLOOD COUNT 2.26 mill/uL (4.70-6.10); RED CELL DISTRI WIDTH 18.2 % (11.5-15.5)
[2023-08-14 07:51] LABS: MANUAL DIFFERENTIAL YES
[2023-08-14 08:28] LABS: ANISOCYTOSIS FEW; BAND 2 % (0-8); SPHEROCYTE FEW
[2023-08-14 08:29] LABS: PLATELET ESTIMATE SLIGHT DECREASE; POIKILOCYTOSIS FEW
[2023-08-14 08:37] LABS: ALBUMIN 3.4 g/dL (3.2-5.0); CREATININE 1.5 mg/dL (0.7-1.3); MAGNESIUM 1.9 mg/dL (1.6-2.3); POTASSIUM 4.2 mmol/l (3.5-5.1); TOTAL PROTEIN 6.4 g/dL (6.3-8.2)
[2023-08-14 08:44] LABS: BILIRUBIN, TOTAL 0.1 mg/dL (0.2-1.3)
[2023-08-14 10:02] VITALS: BP 100/58
[2023-08-14 15:34] VITALS: BP 129/67
[2023-08-14 20:13] VITALS: BP 125/71
[2023-08-15 03:51] VITALS: BP 113/59
[2023-08-15 05:36] LABS: HEMATOCRIT 22.7 % (39.0-50.0); HEMOGLOBIN 7.3 g/dl (14.0-18.0); IMMATURE GRANULOCYTES 25.1 % (0.0-5.0); MANUAL DIFFERENTIAL YES; MEAN CELL VOLUME 103.2 fL CALC (80.0-100.0); MEAN CORPUSCULAR HGB 33.2 pG CALC (26.0-32.0); MEAN CORPUSCULAR HGB CONC 32.2 g/dL CAL (32.0-36.0); PLATELET COUNT 102 thou/uL (130-400)
[2023-08-15 05:41] LABS: ALBUMIN 3.3 g/dL (3.2-5.0); ALKALINE PHOSPHATASE 119 u/l (38-126); ANION GAP 11 (6-22 (CALC)); BUN 27 mg/dL (9-20); BUN/CREATININE RATIO 23 (12-20 (CALC)); CARBON DIOXIDE 26 mmol/l (22-30); CHLORIDE 106 mmol/l (95-108); CREATININE 1.2 mg/dL (0.7-1.3); GFR FOR AFR.AMER. > 60 ML/MIN (>=60 (CALC)); GFR OTHER RACES > 60 ML/MIN (>=60 (CALC)); MAGNESIUM 1.9 mg/dL (1.6-2.3); POTASSIUM 3.6 mmol/l (3.5-5.1); SGOT/AST 27 u/l (17-59); SODIUM 140 mmol/l (137-146); TOTAL PROTEIN 6.4 g/dL (6.3-8.2)
[2023-08-15 05:42] LABS: BILIRUBIN, TOTAL 0.2 mg/dL (0.2-1.3)
[2023-08-15 06:49] LABS: BAND 14 % (0-8)
[2023-08-15 07:33] VITALS: BP 113/63
[2023-08-15 11:42] VITALS: BP 118/60
[2023-08-15 15:12] VITALS: BP 116/60
[2023-08-15 20:17] VITALS: BP 121/63
[2023-08-16] VITALS (7 sets, daily range): BP systolic 111–128; BP diastolic 61–77
[2023-08-16 07:53] LABS: HEMATOCRIT 22.9 % (39.0-50.0); HEMOGLOBIN 7.2 g/dl (14.0-18.0); IMMATURE GRANULOCYTES 27.5 % (0.0-5.0); MEAN CELL VOLUME 104.1 fL CALC (80.0-100.0); MEAN CORPUSCULAR HGB 32.7 pG CALC (26.0-32.0); MEAN CORPUSCULAR HGB CONC 31.4 g/dL CAL (32.0-36.0); PLATELET COUNT 100 thou/uL (130-400); RED CELL DISTRI WIDTH 17.8 % (11.5-15.5)
[2023-08-16 07:54] LABS: MANUAL DIFFERENTIAL YES
[2023-08-16 08:23] LABS: ALBUMIN 3.4 g/dL (3.2-5.0); ALKALINE PHOSPHATASE 115 u/l (38-126); ANION GAP 9 (6-22 (CALC)); BILIRUBIN, TOTAL 0.2 mg/dL (0.2-1.3); BUN 26 mg/dL (9-20); BUN/CREATININE RATIO 25 (12-20 (CALC)); CARBON DIOXIDE 31 mmol/l (22-30); CHLORIDE 103 mmol/l (95-108); CREATININE 1.1 mg/dL (0.7-1.3); GFR FOR AFR.AMER. > 60 ML/MIN (>=60 (CALC)); GFR OTHER RACES > 60 ML/MIN (>=60 (CALC)); MAGNESIUM 1.8 mg/dL (1.6-2.3); POTASSIUM 3.6 mmol/l (3.5-5.1); SGOT/AST 27 u/l (17-59); SODIUM 140 mmol/l (137-146); TOTAL PROTEIN 6.5 g/dL (6.3-8.2)
[2023-08-16 08:53] LABS: BAND 1 % (0-8)
[2023-08-16 08:54] LABS: ANISOCYTOSIS FEW; OVALOCYTES FEW; POIKILOCYTOSIS FEW
[2023-08-16 08:55] LABS: PLATELET ESTIMATE SLIGHT DECREASE
[2023-08-17 04:16] VITALS: BP 104/62
[2023-08-17 05:00] VITALS: BP 104/62
[2023-08-17 08:14] VITALS: BP 108/56
[2023-08-17 09:39] LABS: ALBUMIN 3.8 g/dL (3.2-5.0); ALKALINE PHOSPHATASE 137 u/l (38-126); ANION GAP 9 (6-22 (CALC)); BUN 31 mg/dL (9-20); BUN/CREATININE RATIO 31 (12-20 (CALC)); CARBON DIOXIDE 30 mmol/l (22-30); CHLORIDE 105 mmol/l (95-108); GFR FOR AFR.AMER. > 60 ML/MIN (>=60 (CALC)); GFR OTHER RACES > 60 ML/MIN (>=60 (CALC)); POTASSIUM 3.6 mmol/l (3.5-5.1); SODIUM 140 mmol/l (137-146); TOTAL PROTEIN 7.1 g/dL (6.3-8.2)
[2023-08-17 09:47] LABS: BILIRUBIN, TOTAL 0.4 mg/dL (0.2-1.3); SGOT/AST 49 u/l (17-59)
[2023-08-17 10:16] LABS: BAND 10 % (0-8); HEMATOCRIT 23.7 % (39.0-50.0); HEMOGLOBIN 7.5 g/dl (14.0-18.0); IMMATURE GRANULOCYTES 30.9 % (0.0-5.0); MANUAL DIFFERENTIAL YES; MEAN CELL VOLUME 103.9 fL CALC (80.0-100.0); MEAN CORPUSCULAR HGB 32.9 pG CALC (26.0-32.0); MEAN CORPUSCULAR HGB CONC 31.6 g/dL CAL (32.0-36.0); PLATELET COUNT 112 thou/uL (130-400); RED BLOOD COUNT 2.28 mill/uL (4.70-6.10); RED CELL DISTRI WIDTH 17.8 % (11.5-15.5)
[2023-08-17 10:17] LABS: IMMATURE CELLS 1 %; POIKILOCYTOSIS FEW
[2023-08-17 10:18] LABS: ANISOCYTOSIS FEW; OVALOCYTES FEW; SCHISTOCYTES FEW; SPHEROCYTE FEW; TEAR DROP CELLS FEW
[2023-08-17 10:19] LABS: PLATELET ESTIMATE SLIGHT DECREASE
[2023-08-17 11:31] VITALS: BP 127/80
[2023-08-17 19:22] VITALS: BP 102/57
[2023-08-18 00:24] VITALS: BP 117/62
[2023-08-18 04:53] LABS: ALBUMIN 3.7 g/dL (3.2-5.0); ALKALINE PHOSPHATASE 153 u/l (38-126); ANION GAP 8 (6-22 (CALC)); BILIRUBIN, TOTAL 0.3 mg/dL (0.2-1.3); BUN 36 mg/dL (9-20); BUN/CREATININE RATIO 29 (12-20 (CALC)); CARBON DIOXIDE 32 mmol/l (22-30); CHLORIDE 104 mmol/l (95-108); CREATININE 1.2 mg/dL (0.7-1.3); GFR FOR AFR.AMER. > 60 ML/MIN (>=60 (CALC)); GFR OTHER RACES > 60 ML/MIN (>=60 (CALC)); POTASSIUM 4.1 mmol/l (3.5-5.1); SGOT/AST 56 u/l (17-59); SODIUM 140 mmol/l (137-146); TOTAL PROTEIN 6.9 g/dL (6.3-8.2)
[2023-08-18 05:05] LABS: HEMATOCRIT 21.4 % (39.0-50.0); HEMOGLOBIN 6.7 g/dl (14.0-18.0); IMMATURE GRANULOCYTES 38.1 % (0.0-5.0); MEAN CELL VOLUME 105.9 fL CALC (80.0-100.0); MEAN CORPUSCULAR HGB 33.2 pG CALC (26.0-32.0); MEAN CORPUSCULAR HGB CONC 31.3 g/dL CAL (32.0-36.0); PLATELET COUNT 90 thou/uL (130-400); RED BLOOD COUNT 2.02 mill/uL (4.70-6.10); RED CELL DISTRI WIDTH 17.5 % (11.5-15.5)
[2023-08-18 05:06] LABS: MANUAL DIFFERENTIAL YES
[2023-08-18 05:18] LABS: BAND 14 % (0-8); IMMATURE CELLS 1 %; POIKILOCYTOSIS FEW
[2023-08-18 05:19] LABS: ANISOCYTOSIS FEW; TARGET CELLS FEW
[2023-08-18 07:20] VITALS: BP 113/74
[2023-08-18 12:08] LABS: HEMATOCRIT 23.2 % (39.0-50.0); HEMOGLOBIN 7.3 g/dl (14.0-18.0); MEAN CELL VOLUME 105.9 fL CALC (80.0-100.0); MEAN CORPUSCULAR HGB 33.3 pG CALC (26.0-32.0); MEAN CORPUSCULAR HGB CONC 31.5 g/dL CAL (32.0-36.0); RED BLOOD COUNT 2.19 mill/uL (4.70-6.10); RED CELL DISTRI WIDTH 17.7 % (11.5-15.5)
[2023-08-18 16:01] VITALS: BP 111/64
[2023-08-18 19:27] VITALS: BP 104/58
[2023-08-18 22:32] VITALS: BP 107/79
[2023-08-19] VITALS (10 sets, daily range): BP systolic 100–125; BP diastolic 55–68
[2023-08-19 05:34] LABS: ALBUMIN 3.8 g/dL (3.2-5.0); BILIRUBIN, TOTAL 0.3 mg/dL (0.2-1.3); CREATININE 1.6 mg/dL (0.7-1.3); MAGNESIUM 2.1 mg/dL (1.6-2.3); POTASSIUM 4.2 mmol/l (3.5-5.1); TOTAL PROTEIN 6.7 g/dL (6.3-8.2)
[2023-08-19 05:57] LABS: IMMATURE GRANULOCYTES 38.3 % (0.0-5.0); MEAN CELL VOLUME 106.6 fL CALC (80.0-100.0); MEAN CORPUSCULAR HGB 33.7 pG CALC (26.0-32.0); MEAN CORPUSCULAR HGB CONC 31.6 g/dL CAL (32.0-36.0); PLATELET COUNT 71 thou/uL (130-400); RED BLOOD COUNT 1.81 mill/uL (4.70-6.10); RED CELL DISTRI WIDTH 18.2 % (11.5-15.5)
[2023-08-19 05:58] LABS: HEMATOCRIT 19.3 % (39.0-50.0); HEMOGLOBIN 6.1 g/dl (14.0-18.0); MANUAL DIFFERENTIAL YES
[2023-08-19 05:59] LABS: ANISOCYTOSIS FEW; BAND 15 % (0-8); IMMATURE CELLS 1 %; POIKILOCYTOSIS FEW
[2023-08-20] VITALS (8 sets, daily range): BP systolic 107–128; BP diastolic 55–78
[2023-08-20 06:01] LABS: ALBUMIN 3.7 g/dL (3.2-5.0); ALKALINE PHOSPHATASE 116 u/l (38-126); ANION GAP 9 (6-22 (CALC)); BUN 38 mg/dL (9-20); BUN/CREATININE RATIO 33 (12-20 (CALC)); CARBON DIOXIDE 28 mmol/l (22-30); CHLORIDE 104 mmol/l (95-108); CREATININE 1.2 mg/dL (0.7-1.3); GFR FOR AFR.AMER. > 60 ML/MIN (>=60 (CALC)); GFR OTHER RACES > 60 ML/MIN (>=60 (CALC)); MAGNESIUM 2.3 mg/dL (1.6-2.3); POTASSIUM 4.2 mmol/l (3.5-5.1); SGOT/AST 49 u/l (17-59); SODIUM 136 mmol/l (137-146); TOTAL PROTEIN 6.7 g/dL (6.3-8.2)
[2023-08-20 06:06] LABS: BILIRUBIN, TOTAL 0.6 mg/dL (0.2-1.3)
[2023-08-20 06:44] LABS: IMMATURE GRANULOCYTES 31.8 % (0.0-5.0); MEAN CORPUSCULAR HGB 33.2 pG CALC (26.0-32.0); MEAN CORPUSCULAR HGB CONC 32.9 g/dL CAL (32.0-36.0); PLATELET COUNT 66 thou/uL (130-400); RED BLOOD COUNT 2.08 mill/uL (4.70-6.10); RED CELL DISTRI WIDTH 17.9 % (11.5-15.5)
[2023-08-20 06:45] LABS: HEMOGLOBIN 6.9 g/dl (14.0-18.0); MANUAL DIFFERENTIAL YES
[2023-08-20 06:46] LABS: ANISOCYTOSIS FEW; BAND 8 % (0-8); POIKILOCYTOSIS FEW
[2023-08-21 00:14] VITALS: BP 108/57
[2023-08-21 03:36] VITALS: BP 107/59
[2023-08-21 06:45] VITALS: BP 115/63
[2023-08-21 06:49] LABS: ALBUMIN 3.7 g/dL (3.2-5.0); ALKALINE PHOSPHATASE 135 u/l (38-126); ANION GAP 12 (6-22 (CALC)); BILIRUBIN, TOTAL 0.5 mg/dL (0.2-1.3); BUN 35 mg/dL (9-20); BUN/CREATININE RATIO 29 (12-20 (CALC)); CARBON DIOXIDE 26 mmol/l (22-30); CHLORIDE 102 mmol/l (95-108); CREATININE 1.2 mg/dL (0.7-1.3); GFR FOR AFR.AMER. > 60 ML/MIN (>=60 (CALC)); GFR OTHER RACES > 60 ML/MIN (>=60 (CALC)); MAGNESIUM 2.5 mg/dL (1.6-2.3); POTASSIUM 4.5 mmol/l (3.5-5.1); SGOT/AST 47 u/l (17-59); SODIUM 136 mmol/l (137-146); TOTAL PROTEIN 6.9 g/dL (6.3-8.2)
[2023-08-21 06:55] LABS: HEMATOCRIT 23.3 % (39.0-50.0); HEMOGLOBIN 7.5 g/dl (14.0-18.0); IMMATURE GRANULOCYTES 27.8 % (0.0-5.0); MEAN CELL VOLUME 101.7 fL CALC (80.0-100.0); MEAN CORPUSCULAR HGB 32.8 pG CALC (26.0-32.0); MEAN CORPUSCULAR HGB CONC 32.2 g/dL CAL (32.0-36.0); PLATELET COUNT 79 thou/uL (130-400); RED BLOOD COUNT 2.29 mill/uL (4.70-6.10); RED CELL DISTRI WIDTH 17.1 % (11.5-15.5)
[2023-08-21 06:58] LABS: MANUAL DIFFERENTIAL YES
[2023-08-21 06:59] LABS: BAND 13 % (0-8)
[2023-08-21 07:00] LABS: ANISOCYTOSIS FEW; POIKILOCYTOSIS FEW
[2023-08-21 10:42] VITALS: BP 113/57
[2023-08-21 14:10] VITALS: BP 107/56
[2023-08-21 19:03] VITALS: BP 109/67
[2023-08-22 00:25] VITALS: BP 108/51
[2023-08-22 04:51] VITALS: BP 114/62
[2023-08-22 05:19] LABS: ALBUMIN 3.5 g/dL (3.2-5.0); ALKALINE PHOSPHATASE 155 u/l (38-126); ANION GAP 12 (6-22 (CALC)); BILIRUBIN, TOTAL 0.4 mg/dL (0.2-1.3); BUN 37 mg/dL (9-20); BUN/CREATININE RATIO 27 (12-20 (CALC)); CARBON DIOXIDE 26 mmol/l (22-30); CHLORIDE 105 mmol/l (95-108); CREATININE 1.4 mg/dL (0.7-1.3); GFR FOR AFR.AMER. > 60 ML/MIN (>=60 (CALC)); GFR OTHER RACES 52 ML/MIN (>=60 (CALC)); MAGNESIUM 2.2 mg/dL (1.6-2.3); POTASSIUM 4.2 mmol/l (3.5-5.1); SGOT/AST 36 u/l (17-59); SODIUM 139 mmol/l (137-146); TOTAL PROTEIN 6.5 g/dL (6.3-8.2)
[2023-08-22 05:35] LABS: HEMOGLOBIN 7.7 g/dl (14.0-18.0); MANUAL DIFFERENTIAL YES; MEAN CORPUSCULAR HGB CONC 32.1 g/dL CAL (32.0-36.0); PLATELET COUNT 80 thou/uL (130-400); RED BLOOD COUNT 2.33 mill/uL (4.70-6.10); RED CELL DISTRI WIDTH 16.9 % (11.5-15.5)
[2023-08-22 05:36] LABS: BAND 15 % (0-8)
[2023-08-22 05:37] LABS: ANISOCYTOSIS FEW; POIKILOCYTOSIS FEW
[2023-08-22] MEDS ORDERED: OXYCODONE5 M1 PO (11:41)
[2023-08-22] MEDS ORDERED: OXYCODONE10 M1 PO (12:05)
== END 2023-08-22 17:38 | disposition home or self-care (01) | DRG 603 ==
LOC: ED 10:53 → ED-I 13:00 → ED 13:21 → MS2 13:22
PROVIDERS: Family Medicine; Nurse Practitioner Family; Student in an Organized Health Care Education/Training Program; ADMIT Student in an Organized Health Care Education/Training Program; ATTEND Student in an Organized Health Care Education/Training Program
PROC: 30233N1 Transfusion of Nonautologous Red Blood Cells into Peripheral Vein, Percutaneous Approach (ICD-10-PCS; principal; 2023-08-12)
PROC: 30233N1 Transfusion of Nonautologous Red Blood Cells into Peripheral Vein, Percutaneous Approach (ICD-10-PCS; 2023-08-12)
PROC: 30233N1 Transfusion of Nonautologous Red Blood Cells into Peripheral Vein, Percutaneous Approach (ICD-10-PCS; 2023-08-19)
PROC: 30233N1 Transfusion of Nonautologous Red Blood Cells into Peripheral Vein, Percutaneous Approach (ICD-10-PCS; 2023-08-20)
DX: L03.116 Cellulitis of left lower limb (principal); C91.10 Chronic lymphocytic leukemia of B-cell type not having achieved remission; L88 Pyoderma gangrenosum; Z59.02 Unsheltered homelessness; N17.9 Acute kidney failure, unspecified; T36.0X5A Adverse effect of penicillins, initial encounter; B96.4 Proteus (mirabilis) (morganii) as the cause of diseases classified elsewhere; L03.115 Cellulitis of right lower limb; D63.0 Anemia in neoplastic disease; D69.59 Other secondary thrombocytopenia; R16.1 Splenomegaly, not elsewhere classified; I10 Essential (primary) hypertension; F17.200 Nicotine dependence, unspecified, uncomplicated; T45.1X6A Underdosing of antineoplastic and immunosuppressive drugs, initial encounter; T40.606A Underdosing of unspecified narcotics, initial encounter; Z91.128 Patient's intentional underdosing of medication regimen for other reason; Z91.199 Patient's noncompliance with other medical treatment and regimen due to unspecified reason; Z86.14 Personal history of Methicillin resistant Staphylococcus aureus infection; Z20.822 Contact with and (suspected) exposure to COVID-19
CPT/HCPCS: J0692; J1650; J3370; P9016; Q9967; S0164

== ENCOUNTER 2023-08-25 11:53 | Emergency (ER) | payer OTHER ==
[~2023-08-25] VITALS: Ht 188 cm; Wt 74.5 kg
[2023-08-25] VITALS (28 sets, daily range): BP systolic 87–118; BP diastolic 43–86
[~2023-08-25 11:53] MED LIST changes: +OXYCODONE10 M1 PO; +OXYCODONE5 M1 PO
[2023-08-25 12:32] LABS: GFR FOR AFR.AMER. > 60 ML/MIN (>=60 (CALC)); GFR OTHER RACES 52 ML/MIN (>=60 (CALC))
[2023-08-25 12:45] LABS: ALBUMIN 4.2 g/dL (3.2-5.0); ALKALINE PHOSPHATASE 191 u/l (38-126); ANION GAP 10 (6-22 (CALC)); BUN 30 mg/dL (9-20); BUN/CREATININE RATIO 28 (12-20 (CALC)); CARBON DIOXIDE 27 mmol/l (22-30); CHLORIDE 106 mmol/l (95-108); CREATININE 1.1 mg/dL (0.7-1.3); GFR FOR AFR.AMER. > 60 ML/MIN (>=60 (CALC)); GFR OTHER RACES > 60 ML/MIN (>=60 (CALC)); LIPASE 45 u/l (23-300); POTASSIUM 4.4 mmol/l (3.5-5.1); SGOT/AST 49 u/l (17-59); SODIUM 139 mmol/l (137-146)
[2023-08-25 12:52] LABS: HEMATOCRIT 26.6 % (39.0-50.0); HEMOGLOBIN 8.5 g/dl (14.0-18.0); IMMATURE GRANULOCYTES 28.6 % (0.0-5.0); MANUAL DIFFERENTIAL YES; MEAN CELL VOLUME 104.7 fL CALC (80.0-100.0); MEAN CORPUSCULAR HGB 33.5 pG CALC (26.0-32.0); PLATELET COUNT 111 thou/uL (130-400); RED BLOOD COUNT 2.54 mill/uL (4.70-6.10); RED CELL DISTRI WIDTH 16.4 % (11.5-15.5)
[2023-08-25 12:53] LABS: BILIRUBIN, TOTAL 0.6 mg/dL (0.2-1.3); TOTAL PROTEIN 7.9 g/dL (6.3-8.2)
[2023-08-25 13:19] LABS: BAND 8 % (0-8)
[2023-08-25 15:08] LABS: URINE BILIRUBIN - DIPSTICK Negative (NEGATIVE); URINE BLOOD DIPSTICK Moderate (NEGATIVE); URINE GLUCOSE - DIPSTICK Negative (NEGATIVE); URINE KETONE Negative (NEGATIVE); URINE LEUK ESTERASE Negative (NEGATIVE); URINE NITRITE - DIPSTICK Negative (Negative); URINE PH 6.5 (4.5-8.0); URINE PROTEIN - DIPSTICK 100 mg/dL (NEG-TRACE); URINE SPECIFIC GRAVITY 1.015; URINE UROBILINOGEN - DIPSTICK 0.2 E.U./dL (0.2)
[2023-08-25 15:10] LABS: URINE COLOR Yellow
[2023-08-25 15:14] LABS: URINE CASTS RARE lpf (NONE-RARE); URINE SQUAMOUS EPITHELIAL CELL RARE EPI/hpf (0-FEW); URINE WBC 0-2 WBC/hpf (0-5)
[2023-08-25] MEDS ORDERED: HYDROCO/APAP1 TA9 PO (15:44)
== END 2023-08-25 20:55 | disposition home or self-care (01) ==
LOC: ED 11:53
PROVIDERS: Family Medicine
DX: R10.84 Generalized abdominal pain (principal); C91.10 Chronic lymphocytic leukemia of B-cell type not having achieved remission; R16.1 Splenomegaly, not elsewhere classified; L88 Pyoderma gangrenosum; Z59.00 Homelessness unspecified
CPT/HCPCS: Q9967

== ENCOUNTER 2023-08-25 21:53 | Emergency (ER) | payer OTHER ==
[~2023-08-25] VITALS: Ht 188 cm; Wt 63.5 kg
[~2023-08-25 21:53] MED LIST changes: +HYDROCO/APAP1 TA9 PO
[2023-08-26 00:45] VITALS: BP 110/66
== END 2023-08-26 00:45 | disposition home or self-care (01) ==
LOC: ED 21:53
DX: R10.12 Left upper quadrant pain (principal); C91.10 Chronic lymphocytic leukemia of B-cell type not having achieved remission; R16.1 Splenomegaly, not elsewhere classified; L88 Pyoderma gangrenosum; I10 Essential (primary) hypertension; F17.200 Nicotine dependence, unspecified, uncomplicated; T50.996A Underdosing of other drugs, medicaments and biological substances, initial encounter; Z91.128 Patient's intentional underdosing of medication regimen for other reason; Z91.199 Patient's noncompliance with other medical treatment and regimen due to unspecified reason; Z59.00 Homelessness unspecified

== ENCOUNTER 2023-09-10 20:48 | Emergency (ER) | payer OTHER ==
[~2023-09-10] VITALS: Ht 188 cm; Wt 70.0 kg
[2023-09-10] MEDS ORDERED: HYDROcodone 5 MG/Acetaminophen 325 MG/COMBO PO ONE (20:55)
[2023-09-10] MEDS ORDERED: KETOROLAC TROMETHAMINE 30 MG/ML SDV IM ONE (20:55)
[2023-09-10 21:00] VITALS: BP 97/51
[2023-09-10 21:15] VITALS: BP 102/55
[2023-09-10] MEDS ORDERED: LORTAB 5/3255 MG PO (22:55)
[2023-09-10] MEDS ORDERED: ORPHENADRINE100 MG PO (22:55)
[2023-09-10 23:40] VITALS: BP 102/55
== END 2023-09-10 23:35 | disposition home or self-care (01) ==
LOC: ED 20:48
DX: S39.012A Strain of muscle, fascia and tendon of lower back, initial encounter (principal); C91.10 Chronic lymphocytic leukemia of B-cell type not having achieved remission; I10 Essential (primary) hypertension; L88 Pyoderma gangrenosum; Z59.00 Homelessness unspecified; X58.XXXA Exposure to other specified factors, initial encounter

== ENCOUNTER 2023-09-10 23:57 | Emergency (ER) | payer OTHER ==
[~2023-09-10] VITALS: Ht 188 cm; Wt 50.0 kg
[~2023-09-10 23:57] MED LIST changes: +LORTAB 5/3255 MG PO; +ORPHENADRINE100 MG PO
[2023-09-11] VITALS (65 sets, daily range): BP systolic 78–123; BP diastolic 35–69
[2023-09-11 01:02] LABS: RED BLOOD COUNT 1.43 mill/uL (4.70-6.10)
[2023-09-11 01:03] LABS: HEMATOCRIT 14.9 % (39.0-50.0); HEMOGLOBIN 4.8 g/dl (14.0-18.0); IMMATURE GRANULOCYTES 27.9 % (0.0-5.0); MANUAL DIFFERENTIAL YES; MEAN CELL VOLUME 104.2 fL CALC (80.0-100.0); MEAN CORPUSCULAR HGB 33.6 pG CALC (26.0-32.0); MEAN CORPUSCULAR HGB CONC 32.2 g/dL CAL (32.0-36.0); PLATELET COUNT 104 thou/uL (130-400); RED CELL DISTRI WIDTH 16.5 % (11.5-15.5)
[2023-09-11] MEDS ORDERED: SODIUM CHLORIDE 0.9% 1,000 ML IV ONE ×2 (01:10→07:35)
[2023-09-11] MEDS ORDERED: SODIUM CHLORIDE 0.9% 500 ML IV ONE ×3 (01:12→12:05)
[2023-09-11 01:16] LABS: CREATININE 1.6 mg/dL (0.7-1.3); POTASSIUM 3.9 mmol/l (3.5-5.1)
[2023-09-11 05:07] LABS: BAND 4 % (0-8); IMMATURE CELLS 7 %
[2023-09-11] MEDS ORDERED: HYDROcodone 5 MG/Acetaminophen 325 MG/COMBO PO ONE (05:50)
[2023-09-11] MEDS ORDERED: IBUPROFEN 800 MG/TAB PO ONE (05:50)
[2023-09-11 06:19] LABS: PLASMA CELL 0
[2023-09-11] MEDS ORDERED: Pantoprazole Sodium 40 MG VIAL (Protonix) IV ONE (07:35)
[2023-09-11] MEDS ORDERED: VANCOMYCIN HCL 1 GM in SODIUM CHLORIDE 0.9% 250 ML IV ONE (07:35)
[2023-09-11] MEDS ORDERED: NOREPINEPHRINE BITARTRATE 4 MG in DEXTROSE 5% 250 ML IV ONE ×2 (07:35→12:05)
[2023-09-11] MEDS ORDERED: cefTRIAXone SODIUM 2 GM in SODIUM CHLORIDE 0.9% 100 ML IV ONE (07:35)
[2023-09-11] MEDS ORDERED: ONDANSETRON HCl 4 MG/2 ML SDV IV ONE (09:15)
[2023-09-11] MEDS ORDERED: MORPHINE SULFATE 4 MG/ML VIAL IV ONE (09:15)
== END 2023-09-11 11:52 ==
LOC: ED 23:57
PROVIDERS: Family Medicine
DX: K92.2 Gastrointestinal hemorrhage, unspecified (principal); D64.9 Anemia, unspecified; L03.116 Cellulitis of left lower limb; L03.115 Cellulitis of right lower limb; C91.10 Chronic lymphocytic leukemia of B-cell type not having achieved remission; I10 Essential (primary) hypertension; L88 Pyoderma gangrenosum; Z59.00 Homelessness unspecified; Z20.822 Contact with and (suspected) exposure to COVID-19
CPT/HCPCS: P9016; Q9967; S0164